=== PATIENT | male | born 1950 | race Caucasian/White ===

== ENCOUNTER 2017-01-11 16:23 | Inpatient (IN) | payer MEDICAID ==
[~2017-01-11] VITALS: Ht 170.2 cm; Wt 88.0 kg
--- NOTE | 2017-01-11 17:30 | ERA ---
ER Documentation Chief Complaint Date/Time DATE: 01/11/17 TIME: 17:28 Chief Complaint LEFT ARM PAIN RADIATES TO NECK AND CHEST WALL X1WEEK HPI This is a very pleasant 66-year-old male, Bangladeshi-speaking with a history of diabetes and hypertension that presents to the emergency department complaining of 2 weeks of intermittent chest pain. The patient indicates that the pain initially began in his left arm was a pressure-like sensation. The pain began to spread to his neck and chest wall. He states the pain is localized to the left chest with no radiation to the right side. He also indicates that he has been experiencing back pain on the left-hand side. He denies any fever shaking or chills. He has no shortness of breath at rest or exertion. He denies any recent remote trauma. He states he has never had any similar symptoms in the past. He denies any recent exertion or heavy lifting. He is right-handed dominant. He did indicate that just prior to arrival he attempted to lift a heavy object and this significantly exacerbated the pain to 10 out of 10 in intensity. He denies any weakness of the upper or lower extremities. He denies any lower back pain or abdominal pain. He has not experienced any hemoptysis hematemesis or melanotic stools ROS All systems reviewed and are negative except as per history of present illness. Allergies Allergies: Coded Allergies: No Known Allergy (Unverified , 01/11/17) PMhx/Soc History of Surgery: No Anesthesia Reaction: No Hx Neurological Disorder: No Hx Respiratory Disorders: No Hx Cardiac Disorders: Yes (HTN) Hx Psychiatric Problems: No Hx Miscellaneous Medical Probl: Yes (diabetes) Hx Alcohol Use: Yes Hx Substance Use: No Hx Tobacco Use: No Smoking Status: Never smoker Physical Exam Vitals Vital Signs Date Time Temp Pulse Resp B/P Pulse Ox O2 Delivery O2 Flow Rate FiO2 01/11/17 16:28 97.9 80 18 141/82 98 Physical Exam Constitutional:Well-developed. Well-nourished. HEENT:Normocephalic. Atraumatic.Pupils were equal round reactive to light. Moist mucous membranes.No tonsillar exudates. Neck: No nuchal rigidity. No lymphadenopathy. No posterior cervical spine tenderness or step-offs. Respiratory: Not using accessory muscles of respiration.Lungs were clear to auscultation bilaterally. No rhonchi. No rales. No wheezing. Cardiovascular: Regular rate regular rhythm.No murmurs. No rubs were appreciated.S1, S2 normal. Distal pulses are palpable 2+ bilaterally. GI: Abdomen was soft. Nontender. Non Distended. No pulsatile abdominal masses or bruits. No rebound. No guarding. Bowel sounds were present and normal. Muscle skeletal: Full range of motion of both the upper and lower extremities bilaterally.Normal muscle tone.No assymetrical calf tenderness or swelling. Reproducible tenderness over the left forearm with compartment soft. Skin: No petechia, no purpura. No lesions on the palms or the soles of the feet. No maculopapular rash. NEURO: Patient was alert, awake, orientated x3.No facial droop. Gait observed and normal with no ataxia.Speech had regular rate and rhythm. No focal neurological deficits. Result Diagram: 01/11/17173901/11/17 1740 Results 24 hrs Laboratory Tests Test 01/11/17 17:40 White Blood Count 8.010^3/ul Red Blood Count 4.8210^6/ul Hemoglobin 14.6g/dl Hematocrit 43.9% Mean Corpuscular Volume 91.1fl Mean Corpuscular Hemoglobin 30.3pg Mean Corpuscular Hemoglobin Concent 33.3g/dl Red Cell Distribution Width 11.9% Platelet Count 89774^3/UL Mean Platelet Volume 12.3fl Neutrophils % 54.0% Lymphocytes % 34.3% Monocytes % 6.8% Eosinophils % 4.0% Basophils % 0.5% Nucleated Red Blood Cells % 0.0/100WBC Neutrophils # 4.310^3/ul Lymphocytes # 2.710^3/ul Monocytes # 0.510^3/ul Eosinophils # 0.310^3/ul Basophils # 0.010^3/ul Nucleated Red Blood Cells # 0.010^3/ul Prothrombin Time 12.0Sec Prothrombin Time Ratio 0.9 INR International Normalized Ratio 0.89 Activated Partial Thromboplast Time 26.6Sec Sodium Level 145mmol/L Potassium Level 4.4mmol/L Chloride Level 100mmol/L Carbon Dioxide Level 30mmol/L Anion Gap 19 Blood Urea Nitrogen 28mg/dl Creatinine 1.17mg/dl Glucose Level 131mg/dl Calcium Level 9.7mg/dl Total Bilirubin 0.1mg/dl Direct Bilirubin 0.00mg/dl Indirect Bilirubin 0.1mg/dl Aspartate Amino Transf (AST/SGOT) 36IU/L Alanine Aminotransferase (ALT/SGPT) 45IU/L Alkaline Phosphatase 70IU/L Creatine Kinase 129IU/L Creatine Kinase Index 4.8 Creatinine Kinase MB (Mass) 6.18ng/ml Troponin I 1.160ng/ml B-Type Natriuretic Peptide 1640PG/ML Total Protein 7.7g/dl Albumin 4.9g/dl Globulin 2.80g/dl Albumin/Globulin Ratio 1.75 Current Medications Medications (Trade) Dose Ordered Sig/Miguel Route PRN Reason Start Time Stop Time Status Last Admin Dose Admin Aspirin (Aspirin) 325 mg ONCE STAT PO 01/11/17 18:34 01/11/17 18:35 DC 01/11/17 18:57 Nitroglycerin (Nitroglycerin (Sl Tab) 0.4 Mg) 1 tab Q5M UP TO 3 DOSES PRN SL CHEST PAIN 01/11/17 19:00 IV Flush 10 ml 10 ml STK-MED ONCE .ROUTE 01/11/17 19:06 01/11/17 19:07 DC Sodium Chloride (NS) 0 ml @ ud STK-MED ONCE .ROUTE 01/11/17 19:06 01/11/17 19:07 DC Iodixanol (Visipaque Locm) 100 ml STK-MED ONCE .ROUTE 01/11/17 19:06 01/11/17 19:07 DC Ondansetron HCl (Zofran Inj) 4 mg ER BRIDGE PRN IV NAUSEA AND/OR VOMITING 01/11/17 20:00 01/12/17 19:59 Acetaminophen (Tylenol Tab) 650 mg ER BRIDGE PRN PO MILD PAIN/FEVER 01/11/17 20:00 01/12/17 19:59 IV Flush 10 ml 10 ml STK-MED ONCE .ROUTE 01/11/17 21:06 01/11/17 21:07 DC Sodium Chloride (NS) 100 ml @ ud STK-MED ONCE .ROUTE 01/11/17 21:06 01/11/17 21:07 DC Iodixanol (Visipaque Locm) 100 ml STK-MED ONCE .ROUTE 01/11/17 21:06 01/11/17 21:07 DC IV Flush 10 ml 10 ml STK-MED ONCE .ROUTE 01/11/17 21:28 01/11/17 21:29 DC Sodium Chloride (NS) 100 ml @ ud STK-MED ONCE .ROUTE 01/11/17 21:28 01/11/17 21:29 DC Iodixanol (Visipaque Locm) 100 ml STK-MED ONCE .ROUTE 01/11/17 21:28 01/11/17 21:29 DC Procedures/MDM The patient presented to the emergency department with chest pain. My clinical evaluation and workup was to distinguish minor causes of chest pain from acute life threatening conditions such as myocardial infarction, pulmonary embolism, aortic dissection, esophageal rupture, cardiac tamponade. The patient was placed on a system consultant and continuous pulse oximetry. IV access established by nursing staff. 12 Lead EKG tracing ordered and reviewed by myself showed: Normal sinus rhythm of 75 bpm and no arrhythmia. WV interval normal. QRS duration normal. No ST segment elevation. Minimal criteria for LVH No ST segment depression. No changes consistent with acute ischemia. The patient's troponin was elevated. He was treated for non-STEMI. The patient had received aspirin and nitroglycerin with improvement of his chest discomfort. He had no other electrolyte abnormalities. I repeated the EKG at 1938. 12 Lead EKG tracing ordered and reviewed by myself showed: Normal sinus rhythm of 73 bpm and no arrhythmia. WV interval normal. QRS duration normal. No ST segment elevation No ST segment depression. No changes consistent with acute ischemia. Given that the patient's chest pain radiates to the back I obtained a CT scan with IV contrast. This was read by the radiologist as well as myself and indicated the following: The patient had no evidence of pulmonary embolism or aortic dissection. The patient had an aneurysmal dilatation of the ascending aorta measuring 3.9. The descending aorta was of normal caliber. The patient will be admitted in serious condition with an anticipated stay of greater than 2 midnights under the care of the hospitalist Dr. Emerson. I will place a consult to the vascular surgeon Dr. Stoll for further evaluation into the patient's chest pain radiating to the back however at this time the patient was stable and did not require surgical intervention for the ascending aortic aneurysm. Departure Diagnosis: Primary Impression: NSTEMI (non-ST elevated myocardial infarction) Additional Impression: Mild ascending aorta dilatation Condition: Serious DARRELL DURBIN Jan 11, 2017 17:30
[2017-01-11 17:55] LABS: ADD SCAN DIFF NO
[2017-01-11 17:59] LABS: BASOPHILS % 0.5 % (0.0-2.0); EOSINOPHILS # 0.3 10^3/ul (0.0-0.5); HEMATOCRIT 43.9 % (42.0-52.0); HEMOGLOBIN 14.6 g/dl (14.0-18.0); LYMPHOCYTES # 2.7 10^3/ul (0.8-2.9); LYMPHOCYTES % 34.3 % (15.0-51.0); MEAN CORPUSCULAR HEMOGLOBIN 30.3 pg (29.0-33.0); MEAN CORPUSCULAR HGB CONC 33.3 g/dl (32.0-37.0); MEAN CORPUSCULAR VOLUME 91.1 fl (82.0-101.0); MEAN PLATELET VOLUME 12.3 fl (7.4-10.4); MONOCYTE # 0.5 10^3/ul (0.3-0.9); MONOCYTES % 6.8 % (0.0-11.0); NEUTROPHIL # 4.3 10^3/ul (1.6-7.5); PLATELET COUNT 186 10^3/UL (140-415); RED BLOOD COUNT 4.82 10^6/ul (4.70-6.10); RED CELL DISTRIBUTION WIDTH 11.9 % (11.5-14.5)
[2017-01-11 18:15] LABS: INR 0.89; PARTIAL THROMBOPLASTIN TIME 26.6 Sec (25.0-35.0); PT RATIO 0.9
[2017-01-11 18:18] LABS: ALBUMIN 4.9 g/dl (3.3-4.9); ALBUMIN/GLOBULIN RATIO 1.75; BILIRUBIN,INDIRECT 0.1 mg/dl (0-1.1); BILIRUBIN,TOTAL 0.1 mg/dl (0.2-1.3); CALCIUM 9.7 mg/dl (8.4-10.2); CREATININE 1.17 mg/dl (0.61-1.24); POTASSIUM 4.4 mmol/L (3.5-5.1); TOTAL PROTEIN 7.7 g/dl (6.1-8.1)
--- NOTE | 2017-01-11 18:25 | RADRPT ---
PROCEDURE: XR Chest. CLINICAL INDICATION: Chest pain. TECHNIQUE: Single frontal view. COMPARISON: None. FINDINGS: The lungs are clear. The heart size is normal. There is no pleural effusion. There is no pneumothorax. IMPRESSION: 1. Normal chest radiograph. RPTAT: QQ .Anival Akhtar MD, Date Time Electronically viewed and signed by .Anival Akhtar MD, on 01/11/2017 18:24 .R/
[2017-01-11 18:31] LABS: CK-MB 6.18 ng/ml (0.0-2.4)
[2017-01-11 18:33] LABS: TROPONIN-I 1.16 ng/ml (0.00-0.12)
[2017-01-11] MEDS ORDERED: ASPIRIN 325 MG TAB PO STA (18:34)
[2017-01-11] MEDS ORDERED: NITROGLYCERIN (SL) 0.4 MG TAB SL PRN (19:00)
[2017-01-11] MEDS ORDERED: IODIXANOL LOCM 100 ML BTL ONE ×3 (19:06→21:28)
[2017-01-11] MEDS ORDERED: SOD CHLORIDE 0.9% 0 ML ONE (19:06)
[2017-01-11] MEDS ORDERED: ACETAMINOPHEN 325 MG TAB PO PRN (20:00)
[2017-01-11] MEDS ORDERED: ONDANSETRON 4 MG INJ IV PRN (20:00)
[2017-01-11] MEDS ORDERED: SOD CHLORIDE 0.9% 100 ML ONE ×2 (21:06→21:28)
--- NOTE | 2017-01-11 21:41 | RADRPT ---
PROCEDURE: CT Chest with IV contrast. CLINICAL INDICATION: Chest pain. TECHNIQUE: CT scan of the chest was performed on a multidetector scanner. The patient was scanned following the uncomplicated intravenous administration of 100 cc of Visapaque 320 contrast. 3D, co noelle and sagittal reformatted images were obtained from the axial source images. Images were review ed on a high-resolution PACS workstation. The total exam CTDlvol = 355 mGy and DLP = 809 mGy-cm. One of the following 3 dose reduction techniques were used: Automated exposure control; adjustment of t he mA and/or kV according to patient size; or use of iterative reconstruction technique. COMPARISON: 01/11/2017 FINDINGS: Per document management technician report, there was extravasation of the patient's intravenous contrast injection. Study is nondiagnostic as there is no significant intravascular contrast bolus within the pulmonary arteries or aorta. There is aneurysmal dilatation of the ascending aorta measuring 3.9 cm AP diameter. Descending aort a is normal in caliber.. There is no mediastinal or hilar lymphadenopathy or mass. Heart is normal size. There is trace fluid within the pericardial recesses. There is mild dependent atelectasis. No focal infiltrate. There is no pleural effusion. There is no pneumothorax. There are no fractures. There are degenerative changes of the thoracic spine. Imaging obtained through the upper abdomen reveals no acute abnormality. IMPRESSION: 1. Nondiagnostic examination for pulmonary emboli or aortic dissection. No significant intravascul ar contrast due to contrast extravasation at the injection site per document management technician. 2. Aneurysmal dilatation of the ascending aorta. 3. Trace fluid in the pericardial recess. 4. Mild dependent atelectasis. No focal infiltrate. 5. Degenerative changes of the thoracic spine. RPTAT: HMVK .Justice Morales MD, MD Date Time Electronically viewed and signed by .Justice Morales MD, MD on 01/11/2017 21:41 .K/
[2017-01-12] VITALS (12 sets, daily range): BP systolic 107–133; BP diastolic 55–73; PULSE 58–71; RESP 18–20; Ht 170.2 cm; Wt 88.0 kg
[2017-01-12] MEDS ORDERED: ONDANSETRON 4 MG INJ IV PRN (00:30)
[2017-01-12] MEDS ORDERED: ACETAMINOPHEN 325 MG TAB PO PRN (00:30)
[2017-01-12] MEDS ORDERED: NACL 0.9% 3 ML SYG IV SCH (00:30)
[2017-01-12] MEDS ORDERED: morphine 2 MG INJ IV PRN (00:30)
--- NOTE | 2017-01-12 04:03 | HP ---
Date/Time of Note Date/Time of Note DATE: 01/12/17 TIME: 03:44 Assessment/Plan VTE Prophylaxis VTE Prophylaxis Intervention: SCD's Lines/Catheters IV [facility]from [facility] Saline Lock Urinary Cath still in place: No Assessment/Plan Chief Complaint/Hosp Course This is a 66-year-old male being admitted to the telemetry floor for: #1 chest pain: NSTEMI versus aortic dissection versus PE. Patient's blood pressure right now is within acceptable values. He is currently chest pain- free. However CT scan was nondiagnostic to rule out PE or aortic dissection secondary to extravasation of the contrast. Repeat CT scan was not able to be done as he had a significant load of contrast dye would be risk for kidney injury as his creatinine was 1.17. At the current time patient is chest pain- free. We will continue to trend troponin. Initial one was 1.16. Will provide nitroglycerin and morphine for pain control. I am hesitant to initiate a heparin drip right now if this truly is an NSTEMI secondary to patient's initial presentation of pain radiating to the back and with the CT chest showing aortic root dilatation and there being a risk of possibly causing worsening of symptoms if this is an underlying dissection by giving heparin drip. Will continue to monitor the patient and consult with cardiology and cardiothoracic surgery. As patient received a significant load of contrast as the try twice a do a CT of the chest we may need to do a PEREZ to assess for dissection. At the current time patient is not complaining of any tearing or ripping back pain. Chest x-ray does appear normal with no widening mediastinum , however still we will consult with cardiology and cardiothoracic surgery before proceeding with anticoagulation. #2 hypertension: We will provide low-dose beta-blockade at this time patient currently in does not recall his home medications. #3 diabetes mellitus: We will check a hemoglobin A1c. Patient does not recall all medications he denies use of any insulin right now. Will put patient on insulin sliding scale. #4 Renal insufficiency: Creatinine of 1.17. There are no previous lab results for this patient. He did receive a contrast load today with for his CT scan. Will monitor renal function. Will consult nephrology. DVT and GI prophylaxis: SCDs, Protonix Problems: HPI/ROS Admit Date/Time Admit Date/Time Jan 11, 2017 at 19:38 Hx of Present Illness Chief complaint: Intermittent chest pain 2 weeks This is a very pleasant 66-year-old male, Estonian-speaking with a history of diabetes and hypertension that presents to the emergency department complaining of 2 weeks of intermittent chest pain. The patient indicates that the pain initially began in his left arm was a pressure-like sensation. The pain began to spread to his neck and chest wall. He states the pain is localized to the left chest with no radiation to the right side. He also indicates that he has been experiencing back pain on the left-hand side. He denies any fever shaking or chills. He has no shortness of breath at rest or exertion. He denies any recent remote trauma. He states he has never had any similar symptoms in the past. He denies any recent exertion or heavy lifting. He is right-handed dominant. He did indicate that just prior to arrival he attempted to lift a heavy object and this significantly exacerbated the pain to 10 out of 10 in intensity. He denies any weakness of the upper or lower extremities. He denies any lower back pain or abdominal pain. Denies any recent bleeding of any sort. At the present time on my examination, patient is chest pain-free. Allergies: NKDA Medications: See SERENA SCHWARZ Const: As per HPI Eyes : No pain discharge or redness or change in visual acuity ENT: No pain, sore throat, congestion, congestion, dysphagia or discharge Respiratory: No shortness of breath, cough, sputum, wheezing, or pleuritic pain Cardiovascular: As per HPI GI : no change in appetite, abdominal pain, nausea, vomiting, diarrhea, constipation, or change in the color his stool Genitourinary: No dysuria, hematuria, flank pain , discharge or CVA tenderness Musculoskeletal: As per HPI Skin: No rash, bruising or hives Neuro: No headache, dizziness, syncope, seizure, focal weakness Endocrine: No polyuria, polydipsia, temperature intolerance Psych: No hallucination, depression, anxiety or suicidal ideation PMH/Family/Social Past Medical History Hypertension, diabetes Past Surgical History Past Surgical Hx: no surgical history Family History Significant Family History: no pertinent family hx Social History Alcohol Use: heavy (Patient states that 3 weeks ago he had his last drink, however he does state that he drinks approximately a 6 pack a day.) Smoking Status: Never smoker Drug Use: none Exam/Review of Systems Vital Signs Vitals Vital Signs Date Time Temp Pulse Resp B/P Pulse Ox O2 Delivery O2 Flow Rate FiO2 01/12/17 02:50 98.2 65 20 133/72 97 Room Air Exam Exam General: Patient is lying comfortably in bed in no acute distress and is very pleasant. HEENT: Atraumatic, normocephalic. The pupils are equal, round and reactive. Extraocular motor are intact Neck: Supple with full range of motion. No rigidity or meningismus Chest: Nontender Lungs: Clear to auscultation bilaterally no crackles rales or wheezing Heart: Normal S1-S2, Regular rhythm and rate. No overt murmur appreciated on auscultation. Abdomen: Soft , nontender, nondistended , bowel sounds are present. No guarding no rebound tenderness , No masses or organomegaly. No costovertebral temporal angle mass Extremities: Normal to inspection, no edema no cyanosis Neurologic: Normal mental status, speech normal, cranial nerves II through XII are intact, motor and sensory are intact, no focal weakness Additional Comments PROCEDURE: CT Chest with IV contrast. CLINICAL INDICATION: Chest pain. TECHNIQUE: CT scan of the chest was performed on a multidetector scanner. The patient was scanned following the uncomplicated intravenous administration of 100 cc of Visapaque 320 contrast. 3D, coronal and sagittal reformatted images were obtained from the axial source images. Images were reviewed on a high-resolution PACS workstation. The total exam CTDlvol = 355 mGy and DLP = 809 mGy-cm. One of the following 3 dose reduction techniques were used: Automated exposure control; adjustment of the mA and/or kV according to patient size; or use of iterative reconstruction technique. COMPARISON: 01/11/2017 FINDINGS: Per ag equipment field service technician report, there was extravasation of the patient's intravenous contrast injection. Study is nondiagnostic as there is no significant intravascular contrast bolus within the pulmonary arteries or aorta. There is aneurysmal dilatation of the ascending aorta measuring 3.9 cm AP diameter. Descending aorta is normal in caliber.. There is no mediastinal or hilar lymphadenopathy or mass. Heart is normal size. There is trace fluid within the pericardial recesses. There is mild dependent atelectasis. No focal infiltrate. There is no pleural effusion. There is no pneumothorax. There are no fractures. There are degenerative changes of the thoracic spine. Imaging obtained through the upper abdomen reveals no acute abnormality. IMPRESSION: 1. Nondiagnostic examination for pulmonary emboli or aortic dissection. No significant intravascular contrast due to contrast extravasation at the injection site per ag equipment field service technician. 2. Aneurysmal dilatation of the ascending aorta. 3. Trace fluid in the pericardial recess. 4. Mild dependent atelectasis. No focal infiltrate. 5. Degenerative changes of the thoracic spine. RPTAT: HMVK .Justice Morales MD, MD Date Time Electronically viewed and signed by .Justice Morales MD, on 01/11/2017 21:41 Labs Result Diagram: 01/11/17173901/11/17 174 Medications Medications Current Medications Ondansetron HCl (Zofran Inj) 4 mg Q6H PRN IV NAUSEA AND/OR VOMITING; Start at 00:30 Aspirin (Aspirin) 81 mg DAILY PO ; Start 01/12/17 at 09:00 Acetaminophen (Tylenol Tab) 650 mg Q6H PRN PO PAIN LEVEL 1-3 OR FEVER; Start at 00:30 Morphine Sulfate (morphine) 2 mg Q4H PRN IV PAIN LEVEL 7-10; Start 01/12/17 at 00:30 Pantoprazole (Protonix Iv) 40 mg DAILY@06 IV ; Start 01/12/17 at 06:00 MASSIEL ALEXANDER Jan 12, 2017 04:01
[2017-01-12] MEDS ORDERED: morphine 4 MG/ML VIAL IV STA (05:21)
[2017-01-12] MEDS ORDERED: NITROGLYCERIN (SL) 0.4 MG TAB ONE (05:24)
[2017-01-12 05:37] LABS: ADD SCAN DIFF NO
[2017-01-12 05:48] LABS: BASOPHILS % 0.6 % (0.0-2.0); EOSINOPHILS # 0.2 10^3/ul (0.0-0.5); EOSINOPHILS % 3.4 % (0.0-7.0); HEMATOCRIT 40.9 % (42.0-52.0); HEMOGLOBIN 13.8 g/dl (14.0-18.0); LYMPHOCYTES % 30.5 % (15.0-51.0); MEAN CORPUSCULAR HEMOGLOBIN 31.1 pg (29.0-33.0); MEAN CORPUSCULAR HGB CONC 33.7 g/dl (32.0-37.0); MEAN CORPUSCULAR VOLUME 92.1 fl (82.0-101.0); MEAN PLATELET VOLUME 12.4 fl (7.4-10.4); MONOCYTE # 0.4 10^3/ul (0.3-0.9); MONOCYTES % 6.1 % (0.0-11.0); NEUTROPHIL # 3.9 10^3/ul (1.6-7.5); NEUTROPHILS % 58.9 % (39.0-77.0); PLATELET COUNT 170 10^3/UL (140-415); RED BLOOD COUNT 4.44 10^6/ul (4.70-6.10); RED CELL DISTRIBUTION WIDTH 11.8 % (11.5-14.5); WHITE BLOOD COUNT 6.6 10^3/ul (4.8-10.8)
[2017-01-12 06:01] LABS: CHOL/HDL RATIO 4.1 RATIO
[2017-01-12 06:21] LABS: CK-MB 10.7 ng/ml (0.0-2.4); TROPONIN-I 1.99 ng/ml (0.00-0.12)
[2017-01-12 06:23] LABS: ALBUMIN 4.3 g/dl (3.3-4.9); ALBUMIN/GLOBULIN RATIO 1.79; BILIRUBIN,INDIRECT 0.3 mg/dl (0-1.1); BILIRUBIN,TOTAL 0.3 mg/dl (0.2-1.3); CALCIUM 9.2 mg/dl (8.4-10.2); CREATININE 1.05 mg/dl (0.61-1.24); POTASSIUM 4.1 mmol/L (3.5-5.1); TOTAL PROTEIN 6.7 g/dl (6.1-8.1)
[2017-01-12] MEDS ORDERED: GLUCAGON 1 MG INJ IM PRN (07:00)
[2017-01-12] MEDS ORDERED: DEXTROSE 50% 50 ML SYRINGE IV PRN ×2 (07:00)
[2017-01-12] MEDS ORDERED: GLUCOSE GEL 15 GRAM TUBE PO PRN ×2 (07:00)
[2017-01-12] MEDS ORDERED: GLUCOSE GEL 15 GRAM TUBE BUCCAL PRN (07:00)
[2017-01-12] MEDS: PANTOPRAZOLE 40 MG INJ IV SCH (07:24)
[2017-01-12] MEDS ORDERED: SOD CHLORIDE 0.9% 500 ML IV ONE (07:30)
[2017-01-12] MEDS: INSULIN ASPART [NOVOLOG] 3 ML PEN SC SCH ×4 (08:23→20:51)
[2017-01-12] MEDS: ASPIRIN 81 MG TAB PO SCH (08:23)
[2017-01-12 08:52] LABS: ALBUMIN 4.1 g/dl (3.3-4.9); ALBUMIN/GLOBULIN RATIO 1.86; BILIRUBIN,INDIRECT 0.3 mg/dl (0-1.1); BILIRUBIN,TOTAL 0.3 mg/dl (0.2-1.3); CALCIUM 9.7 mg/dl (8.4-10.2); CREATININE 0.91 mg/dl (0.61-1.24); POTASSIUM 4.2 mmol/L (3.5-5.1); TOTAL PROTEIN 6.3 g/dl (6.1-8.1)
[2017-01-12 09:07] LABS: CK-MB 8.92 ng/ml (0.0-2.4); TROPONIN-I 2.07 ng/ml (0.00-0.12)
--- NOTE | 2017-01-12 09:17 | RADRPT ---
PROCEDURE: CTA Chest. CLINICAL INDICATION: Chest pain TECHNIQUE: Cough the injury and was attempted however of the line that had been placed was not sero ma for injection and the study was unable to be performed. One or more of the following dose reduction techniques were used: - Automated exposure control. - Adjustment of the mA and/or kV according to patient size. Use of iterative reconstruction technique. DLP 105.6 mGycm CTDIvol December 08 0.3 mGy COMPARISON: No prior studies are available for comparison. FINDINGS: Nondiagnostic study IMPRESSION: Nondiagnostic study RPTAT: QQ .Mohan Cid MD, Date Time Electronically viewed and signed by .Mohan Cid MD, MD on 01/12/2017 09:17 .Toby/
--- NOTE | 2017-01-12 09:53 | CONS ---
Date/Time of Note Date/Time of Note DATE: 01/12/17 TIME: 09:44 Assessment/Plan Assessment/Plan Chief Complaint/Hosp Course NSTEMI: Trop up to 2. Now asymptomatic. Low suspicion for aortic dissection but as there was a high suspicion in the ER and the first test was nondiagnostic ( of note no contrast was given IV as was extravasated), will await results of this morning's CT to then start heparin drip Ascending aorta aneurysm: 3.[address] DM HTN -f/u CTA. If no dissection, heparin drip has been ordered and can be started -plan for cardiac cath in am -NPO after midnight -ASA -start lipitor 40mg -start metoprolol 25mg BID -bedrest -echo Problems: Consultation Date/Type/Reason Admit Date/Time Jan 11, 2017 at 19:38 Date of Consultation: Jan 12, 2017 Type of Consultation: Cardiology Reason for Consultation NSTEMI Referring Provider: MASSIEL ALEXANDER Hx of Present Illness 66 yo M with a h/o DM, HTN, who presented with chest pain. The pt had been complaining of chest pain radiating to the back and so a CTA was ordered in the ER. The contrast extravasated and so no contrast was delivered and the test was read as nondiagnostic. This am it is reordered. The pt notes that over the past 2 weeks he has been having exertional left arm/chest/jaw pressure which resolves with rest. Yesterday he had an episode lifting a small piece of wood and prior to bed had rest pain. Since coming in his chest pain resolved except for this am when he was having his blood drawn (afraid of needles). Currently asymptomatic. No SOB, no orthopnea, PND. per hPI Past Medical History per HPI Past Surgical History Past Surgical Hx: no surgical history Social History Alcohol Use: heavy (Patient states that 3 weeks ago he had his last drink, however he does state that he drinks approximately a 6 pack a day.) Smoking Status: Never smoker Drug Use: none Exam/Review of Systems Vital Signs Vitals Vital Signs Date Time Temp Pulse Resp B/P Pulse Ox O2 Delivery O2 Flow Rate FiO2 01/12/17 08:12 68 01/12/17 07:34 98.0 18 111/69 100 01/12/17 02:50 Room Air Intake and Output 01/11/17 01/11/17 01/12/17 15:00 23:00 07:00 Intake Total 500 ml Output Total 600 ml Balance -100 ml Exam Constitutional: alert, oriented Psych: nl mood/affect, no complaints Head: atraumatic, normocephalic Neck: No jvd Respiratory: clear to auscultation, No crackles/rales Cardiovascular: regular rate and rhythm, No edema, No systolic murmur Gastrointestinal: non-tender, soft Neurological: nl mental status, nl speech Results EKG: sinus, no significant ST changes, poor RW progression, low voltage Result Diagram: 01/12/17 0503 01/12/17 0731 Results 24 hrs Laboratory Tests Test 01/11/17 17:40 01/12/17 05:03 01/12/17 05:07 01/12/17 07:27 White Blood Count 8.0 6.6 Red Blood Count 4.82 4.44 L Hemoglobin 14.6 13.8 L Hematocrit 43.9 40.9 L Mean Corpuscular Volume 91.1 92.1 Mean Corpuscular Hemoglobin 30.3 31.1 Mean Corpuscular Hemoglobin Concent 33.3 33.7 Red Cell Distribution Width 11.9 11.8 Platelet Count 186 170 Mean Platelet Volume 12.3 H 12.4 H Neutrophils % 54.0 58.9 Lymphocytes % 34.3 30.5 Monocytes % 6.8 6.1 Eosinophils % 4.0 3.4 Basophils % 0.5 0.6 Nucleated Red Blood Cells % 0.0 0.0 Neutrophils # 4.3 3.9 Lymphocytes # 2.7 2.0 Monocytes # 0.5 0.4 Eosinophils # 0.3 0.2 Basophils # 0.0 0.0 Nucleated Red Blood Cells # 0.0 0.0 Prothrombin Time 12.0 L Prothrombin Time Ratio 0.9 INR International Normalized Ratio 0.89 Activated Partial Thromboplast Time 26.6 Sodium Level 145 H 143 Potassium Level 4.4 4.1 Chloride Level 100 98 Carbon Dioxide Level 30 31 Anion Gap 19 H 18 H Blood Urea Nitrogen 28 H 24 H Creatinine 1.17 1.05 Glucose Level 131 240 #H Calcium Level 9.7 9.2 Total Bilirubin 0.1 L 0.3 Direct Bilirubin 0.00 0.00 Indirect Bilirubin 0.1 0.3 Aspartate Amino Transf (AST/SGOT) 36 39 Alanine Aminotransferase (ALT/SGPT) 45 45 Alkaline Phosphatase 70 54 Creatine Kinase 129 152 162 Creatine Kinase Index 4.8 7.0 5.5 Creatinine Kinase MB (Mass) 6.18 H 10.70 H 8.92 H Troponin I 1.160 *H 1.990 *H 2.070 *H B-Type Natriuretic Peptide 1640 H Total Protein 7.7 6.7 # Albumin 4.9 4.3 Globulin 2.80 2.40 Albumin/Globulin Ratio 1.75 1.79 Thyroid Stimulating Hormone (TSH) 4.020 Hemoglobin A1c 10.9 H Triglycerides Level 124 Cholesterol Level 146 LDL Cholesterol, Calculated 86 HDL Cholesterol 35 Cholesterol/HDL Ratio 4.1 Test 01/12/17 07:31 01/12/17 07:42 Sodium Level 141 Potassium Level 4.2 Chloride Level 97 Carbon Dioxide Level 29 Anion Gap 19 H Blood Urea Nitrogen 25 H Creatinine 0.91 Glucose Level 172 Calcium Level 9.7 Total Bilirubin 0.3 Direct Bilirubin 0.00 Indirect Bilirubin 0.3 Aspartate Amino Transf (AST/SGOT) 38 Alanine Aminotransferase (ALT/SGPT) 41 Alkaline Phosphatase 57 Total Protein 6.3 Albumin 4.1 Globulin 2.20 Albumin/Globulin Ratio 1.86 Bedside Glucose 173 Medications Medications Current Medications Ondansetron HCl (Zofran Inj) 4 mg Q6H PRN IV NAUSEA AND/OR VOMITING; Start at 00:30 Aspirin (Aspirin) 81 mg DAILY PO Last administered on 01/12/17 08:23; Admin Dose 81 MG; Start 01/12/17 at 09:00 Acetaminophen (Tylenol Tab) 650 mg Q6H PRN PO PAIN LEVEL 1-3 OR FEVER; Start at 00:30 Morphine Sulfate (morphine) 2 mg Q4H PRN IV PAIN LEVEL 7-10; Start 01/12/17 at 00:30 Pantoprazole (Protonix Iv) 40 mg DAILY@06 IV Last administered on 01/12/17 07: 24; Admin Dose 40 MG; Start 01/12/17 at 06:00 Insulin Glargine (Lantus) 15 unit DAILY@20 SC ; Start 01/12/17 at 20:00 Diagnostic Test (Pha) (Accu-Chek) 1 ea 02 XX ; Start 01/13/17 at 02:00 Miscellaneous Information 1 ea NOTE XX ; Start 01/12/17 at 07:00 Glucose (Glutose) 15 gm Q15M PRN PO DECREASED GLUCOSE; Start 01/12/17 at 07:00 Glucose (Glutose) 22.5 gm Q15M PRN PO DECREASED GLUCOSE; Start 01/12/17 at 07: 00 Dextrose (D50w Syringe) 25 ml Q15M PRN IV DECREASED GLUCOSE; Start 01/12/17 at 07:00 Dextrose (D50w Syringe) 50 ml Q15M PRN IV DECREASED GLUCOSE; Start 01/12/17 at 07:00 Glucagon (Glucagen) 1 mg Q15M PRN IM DECREASED GLUCOSE; Start 01/12/17 at 07:00 Glucose (Glutose) 15 gm Q15M PRN BUCCAL DECREASED GLUCOSE; Start 01/12/17 at 07 :00 Atorvastatin Calcium (Lipitor) 40 mg HS PO ; Start 01/12/17 at 21:00 Metoprolol Tartrate (Lopressor) 25 mg BID PO ; Start 01/12/17 at 09:30 FRANKIE WOOD Jan 12, 2017 09:53
[2017-01-12] MEDS ORDERED: HEPARIN 1000 UNITS/ML 10 ML INJ IV PRN (10:00)
[2017-01-12] MEDS ORDERED: HEPARIN 1000 UNITS/ML 10 ML INJ IV ONE (10:00)
[2017-01-12] MEDS ORDERED: IOHEXOL 300MG/ML 150 ML BTL ONE (10:05)
[2017-01-12] MEDS ORDERED: SOD CHLORIDE 0.9% 100 ML ONE (10:05)
[2017-01-12 10:15] LABS: CK-MB 8.73 ng/ml (0.0-2.4)
[2017-01-12 10:33] LABS: TROPONIN-I 2.04 ng/ml (0.00-0.12)
[2017-01-12] MEDS: METOPROLOL 25 MG TAB PO SCH ×2 (10:40→20:51)
--- NOTE | 2017-01-12 10:43 | RADRPT ---
PROCEDURE: CTA Chest. CLINICAL INDICATION: Chest pain TECHNIQUE: The study was performed utilizing a multidetector CT scanner. Direct spiral 1 mm axial sections were obtained from the thoracic inlet to the upper abdomen with the use of 100 cc of Omnipa que 350 nonionic intravenous contrast material and reformatted at 3 mm. Coronal and sagittal reforma tions were obtained. 3-D reconstructions were also obtained. The images were reviewed on a PACS wor kstation. One or more of the following dose reduction techniques were used: - Automated exposure control. - Adjustment of the mA and/or kV according to patient size. Use of iterative reconstruction technique. DLP 687.3 mGycm CTDIvol 22.5 and 16.9 mGy COMPARISON: Chest CT 01/01/2017 FINDINGS: The pulmonary arteries are within normal limits with no filling defects present to suggest pulmonary embolus. Aortic and coronary artery atherosclerotic plaque and calcification are present with no e vidence of dissection. There is no cardiomegaly. There is ascending aortic ectasia up to 3.7 cm. There is no lung consolidation, pleural effusion, or pneumothorax. There is no suspicious nodule or mass. The airways are patent. There are no enlarged mediastinal or axillary lymph nodes. Upper abdominal structures are within normal limits. Degenerative changes are seen in the lumbar sp ine with no evidence of acute osseous abnormality. IMPRESSION: No CT evidence for pulmonary embolus. There is no aortic dissection. There is ascending aortic ectas ia. Atherosclerotic disease. No acute pulmonary process. RPTAT: AA .Mohan Cid MD, Date Time Electronically viewed and signed by .Mohan Cid MD, MD on 01/12/2017 10:43 .J/
[2017-01-12 11:41] LABS: ADD SCAN DIFF NO
[2017-01-12] MEDS: HEPARIN 25000 UNITS/250 ML 250 ML IV SCH ×2 (11:56→19:12)
[2017-01-12] MEDS: INSULIN GLARGINE [LANtus] 3 ML PEN SC SCH (12:01)
[2017-01-12 12:03] LABS: INR 1.06; PROTIME 13.8 Sec (12.2-14.2); PT RATIO 1.1
[2017-01-12 12:04] LABS: PARTIAL THROMBOPLASTIN TIME 27.8 Sec (25.0-35.0)
[2017-01-12 12:49] LABS: BASOPHIL # 0.1 10^3/ul (0.0-0.1); BASOPHILS % 0.8 % (0.0-2.0); EOSINOPHILS # 0.2 10^3/ul (0.0-0.5); EOSINOPHILS % 2.7 % (0.0-7.0); HEMATOCRIT 40.9 % (42.0-52.0); HEMOGLOBIN 13.6 g/dl (14.0-18.0); LYMPHOCYTES # 1.8 10^3/ul (0.8-2.9); LYMPHOCYTES % 28.7 % (15.0-51.0); MEAN CORPUSCULAR HEMOGLOBIN 30.6 pg (29.0-33.0); MEAN CORPUSCULAR HGB CONC 33.3 g/dl (32.0-37.0); MEAN CORPUSCULAR VOLUME 92.1 fl (82.0-101.0); MEAN PLATELET VOLUME 12.4 fl (7.4-10.4); MONOCYTE # 0.4 10^3/ul (0.3-0.9); MONOCYTES % 6.8 % (0.0-11.0); NEUTROPHIL # 3.8 10^3/ul (1.6-7.5); NEUTROPHILS % 60.5 % (39.0-77.0); PLATELET COUNT 172 10^3/UL (140-415); RED BLOOD COUNT 4.44 10^6/ul (4.70-6.10); RED CELL DISTRIBUTION WIDTH 11.9 % (11.5-14.5); WHITE BLOOD COUNT 6.3 10^3/ul (4.8-10.8)
--- NOTE | 2017-01-12 15:05 | CONS ---
Date/Time of Note Date/Time of Note DATE: 01/12/17 TIME: 15:02 Assessment/Plan Assessment/Plan Chief Complaint/Hosp Course Aortic aneurysm Problems: Additional Assessment/Plan This is a 66-year-old male with a history of hypertension and diabetes. Patient was admitted with chest pain was diagnosed with non-ST elevation OR part of his workup which which included a CAT scan of the chest revealed an ascending aortic aneurysm 3.9 cm the first CAT scan was inconclusive for dissection the second CAT scan has showed there is no dissection patient does not have any typical pain that is for aortic dissection and is hemodynamically stable We will monitor the aortic aneurysm. Repeat CAT scan in 6 months Consultation Date/Type/Reason Admit Date/Time Jan 11, 2017 at 19:38 Date of Consultation: Jan 12, 2017 Reason for Consultation Aortic aneurysm Hx of Present Illness This is a 66-year-old male with a history of hypertension and diabetes. Patient was admitted with chest pain was diagnosed with non-ST elevation OR part of his workup which which included a CAT scan of the chest revealed an ascending aortic aneurysm 3.9 cm the first CAT scan was inconclusive for dissection the second CAT scan has showed there is no dissection patient does not have any typical pain that is for aortic dissection and is hemodynamically stable Cardiovascular: no complaints Gastrointestinal: no complaints Genitourinary: no complaints Musculoskeletal: no complaints Skin: no complaints Psychological: nl mood/affect, no complaints Past Medical History Medical History: coronary artery disease, diabetes Past Surgical History Past Surgical Hx: no surgical history Social History Alcohol Use: none (Patient states that 3 weeks ago he had his last drink, however he does state that he drinks approximately a 6 pack a day.) Smoking Status: Never smoker Drug Use: none Exam/Review of Systems Vital Signs Vitals Vital Signs Date Time Temp Pulse Resp B/P Pulse Ox O2 Delivery O2 Flow Rate FiO2 01/12/17 12:12 59 01/12/17 11:59 98.6 18 107/66 99 01/12/17 02:50 Room Air Intake and Output 01/11/17 01/11/17 01/12/17 15:00 23:00 07:00 Intake Total 500 ml Output Total 600 ml Balance -100 ml Exam ENMT: nl external ears & nose, nl lips & teeth, nl nasal mucosa & septum Neck: non-tender, supple Respiratory: clear to auscultation, normal air movement Cardiovascular: nl pulses, regular rate and rhythm Gastrointestinal: nl liver, spleen, non-tender, soft Results Result Diagram: 01/12/17 1134 01/12/17 0731 Results 24 hrs Laboratory Tests Test 01/11/17 17:40 01/12/17 05:03 01/12/17 05:07 01/12/17 07:27 White Blood Count 8.0 6.6 Red Blood Count 4.82 4.44 L Hemoglobin 14.6 13.8 L Hematocrit 43.9 40.9 L Mean Corpuscular Volume 91.1 92.1 Mean Corpuscular Hemoglobin 30.3 31.1 Mean Corpuscular Hemoglobin Concent 33.3 33.7 Red Cell Distribution Width 11.9 11.8 Platelet Count 186 170 Mean Platelet Volume 12.3 H 12.4 H Neutrophils % 54.0 58.9 Lymphocytes % 34.3 30.5 Monocytes % 6.8 6.1 Eosinophils % 4.0 3.4 Basophils % 0.5 0.6 Nucleated Red Blood Cells % 0.0 0.0 Neutrophils # 4.3 3.9 Lymphocytes # 2.7 2.0 Monocytes # 0.5 0.4 Eosinophils # 0.3 0.2 Basophils # 0.0 0.0 Nucleated Red Blood Cells # 0.0 0.0 Prothrombin Time 12.0 L Prothrombin Time Ratio 0.9 INR International Normalized Ratio 0.89 Activated Partial Thromboplast Time 26.6 Sodium Level 145 H 143 Potassium Level 4.4 4.1 Chloride Level 100 98 Carbon Dioxide Level 30 31 Anion Gap 19 H 18 H Blood Urea Nitrogen 28 H 24 H Creatinine 1.17 1.05 Glucose Level 131 240 #H Calcium Level 9.7 9.2 Total Bilirubin 0.1 L 0.3 Direct Bilirubin 0.00 0.00 Indirect Bilirubin 0.1 0.3 Aspartate Amino Transf (AST/SGOT) 36 39 Alanine Aminotransferase (ALT/SGPT) 45 45 Alkaline Phosphatase 70 54 Creatine Kinase 129 152 162 Creatine Kinase Index 4.8 7.0 5.5 Creatinine Kinase MB (Mass) 6.18 H 10.70 H 8.92 H Troponin I 1.160 *H 1.990 *H 2.070 *H B-Type Natriuretic Peptide 1640 H Total Protein 7.7 6.7 # Albumin 4.9 4.3 Globulin 2.80 2.40 Albumin/Globulin Ratio 1.75 1.79 Thyroid Stimulating Hormone (TSH) 4.020 Hemoglobin A1c 10.9 H Triglycerides Level 124 Cholesterol Level 146 LDL Cholesterol, Calculated 86 HDL Cholesterol 35 Cholesterol/HDL Ratio 4.1 Test 01/12/17 07:31 01/12/17 07:42 01/12/17 09:22 01/12/17 11:14 Sodium Level 141 Potassium Level 4.2 Chloride Level 97 Carbon Dioxide Level 29 Anion Gap 19 H Blood Urea Nitrogen 25 H Creatinine 0.91 Glucose Level 172 Calcium Level 9.7 Total Bilirubin 0.3 Direct Bilirubin 0.00 Indirect Bilirubin 0.3 Aspartate Amino Transf (AST/SGOT) 38 Alanine Aminotransferase (ALT/SGPT) 41 Alkaline Phosphatase 57 Total Protein 6.3 Albumin 4.1 Globulin 2.20 Albumin/Globulin Ratio 1.86 Bedside Glucose 173 Creatine Kinase 151 Creatine Kinase Index 5.8 Creatinine Kinase MB (Mass) 8.73 H Troponin I 2.040 *H Prothrombin Time 13.8 Prothrombin Time Ratio 1.1 INR International Normalized Ratio 1.06 Activated Partial Thromboplast Time 27.8 Test 01/12/17 11:26 01/12/17 11:34 Bedside Glucose 182 White Blood Count 6.3 Red Blood Count 4.44 L Hemoglobin 13.6 L Hematocrit 40.9 L Mean Corpuscular Volume 92.1 Mean Corpuscular Hemoglobin 30.6 Mean Corpuscular Hemoglobin Concent 33.3 Red Cell Distribution Width 11.9 Platelet Count 172 Mean Platelet Volume 12.4 H Neutrophils % 60.5 Lymphocytes % 28.7 Monocytes % 6.8 Eosinophils % 2.7 Basophils % 0.8 Nucleated Red Blood Cells % 0.0 Neutrophils # 3.8 Lymphocytes # 1.8 Monocytes # 0.4 Eosinophils # 0.2 Basophils # 0.1 Nucleated Red Blood Cells # 0.0 Medications Medications Current Medications Ondansetron HCl (Zofran Inj) 4 mg Q6H PRN IV NAUSEA AND/OR VOMITING; Start at 00:30 Aspirin (Aspirin) 81 mg DAILY PO Last administered on 01/12/17t 08:23; Admin Dose 81 MG; Start 01/12/17 at 09:00 Acetaminophen (Tylenol Tab) 650 mg Q6H PRN PO PAIN LEVEL 1-3 OR FEVER; Start at 00:30 Morphine Sulfate (morphine) 2 mg Q4H PRN IV PAIN LEVEL 7-10; Start 01/12/17 at 00:30 Pantoprazole (Protonix Iv) 40 mg DAILY@06 IV Last administered on 01/12/17 07: 24; Admin Dose 40 MG; Start 01/12/17 at 06:00 Diagnostic Test (Pha) (Accu-Chek) 1 ea 02 XX ; Start 01/13/17 at 02:00 Miscellaneous Information 1 ea NOTE XX ; Start 01/12/17 at 07:00 Glucose (Glutose) 15 gm Q15M PRN PO DECREASED GLUCOSE; Start 01/12/17 at 07:00 Glucose (Glutose) 22.5 gm Q15M PRN PO DECREASED GLUCOSE; Start 01/12/17 at 07: 00 Dextrose (D50w Syringe) 25 ml Q15M PRN IV DECREASED GLUCOSE; Start 01/12/17 at 07:00 Dextrose (D50w Syringe) 50 ml Q15M PRN IV DECREASED GLUCOSE; Start 01/12/17 at 07:00 Glucagon (Glucagen) 1 mg Q15M PRN IM DECREASED GLUCOSE; Start 01/12/17 at 07:00 Glucose (Glutose) 15 gm Q15M PRN BUCCAL DECREASED GLUCOSE; Start 01/12/17 at 07 :00 Atorvastatin Calcium (Lipitor) 40 mg HS PO ; Start 01/12/17 at 21:00 Metoprolol Tartrate (Lopressor) 25 mg BID PO Last administered on 01/12/17 10: 40; Admin Dose 25 MG; Start 01/12/17 at 09:30 Insulin Glargine (Lantus) 13 unit DAILY@08 SC Last administered on 01/12/17 12 :01; Admin Dose 13 UNIT; Start 01/12/17 at 11:00 BELL HOFFMAN MD Jan 12, 2017 15:05
[2017-01-12] MEDS ORDERED: INSULIN GLARGINE [LANtus] 3 ML PEN SC SCH (20:00)
[2017-01-12] MEDS: ATORVASTATIN 40 MG TAB PO SCH (20:52)
[2017-01-13] VITALS (35 sets, daily range): BP systolic 98–150; BP diastolic 63–84; PULSE 56–79; RESP 12–25
[2017-01-13] MEDS: ACCU-CHEK XX SCH (02:00)
[2017-01-13] MEDS ORDERED: ACCU-CHEK XX SCH (02:00)
[2017-01-13] MEDS: PANTOPRAZOLE 40 MG INJ IV SCH (06:29)
[2017-01-13] MEDS: INSULIN GLARGINE [LANtus] 3 ML PEN SC SCH (08:00)
[2017-01-13] MEDS: INSULIN ASPART [NOVOLOG] 3 ML PEN SC SCH ×4 (08:00→21:30)
[2017-01-13] MEDS: METOPROLOL 25 MG TAB PO SCH (09:00)
[2017-01-13] MEDS: ASPIRIN 81 MG TAB PO SCH (09:00)
[2017-01-13 09:22] LABS: ADD SCAN DIFF NO
[2017-01-13 09:24] LABS: BASOPHILS % 0.6 % (0.0-2.0); EOSINOPHILS # 0.2 10^3/ul (0.0-0.5); EOSINOPHILS % 3.1 % (0.0-7.0); HEMOGLOBIN 14.2 g/dl (14.0-18.0); LYMPHOCYTES # 2.2 10^3/ul (0.8-2.9); LYMPHOCYTES % 33.1 % (15.0-51.0); MEAN CORPUSCULAR HEMOGLOBIN 30.9 pg (29.0-33.0); MEAN CORPUSCULAR HGB CONC 33.8 g/dl (32.0-37.0); MEAN CORPUSCULAR VOLUME 91.3 fl (82.0-101.0); MEAN PLATELET VOLUME 12.2 fl (7.4-10.4); MONOCYTE # 0.4 10^3/ul (0.3-0.9); MONOCYTES % 6.4 % (0.0-11.0); NEUTROPHIL # 3.7 10^3/ul (1.6-7.5); NEUTROPHILS % 56.5 % (39.0-77.0); PLATELET COUNT 176 10^3/UL (140-415); RED CELL DISTRIBUTION WIDTH 11.9 % (11.5-14.5); WHITE BLOOD COUNT 6.5 10^3/ul (4.8-10.8)
[2017-01-13 09:47] LABS: CALCIUM 8.9 mg/dl (8.4-10.2); CREATININE 0.81 mg/dl (0.61-1.24); MAGNESIUM 1.7 mg/dl (1.7-2.5)
[2017-01-13] MEDS: HEPARIN 25000 UNITS/250 ML 250 ML IV SCH (10:09)
[2017-01-13] MEDS ORDERED: VERAPAMIL 5 MG INJ ONE (10:17)
[2017-01-13] MEDS ORDERED: NITROGLYCERIN (IC) 100 MCG/ML INJ ONE (10:17)
[2017-01-13] MEDS ORDERED: LIDOCAINE 1% (MDV) 20 ML INJ ONE (10:17)
[2017-01-13] MEDS ORDERED: HEPARIN 1000 UNITS/ML 10 ML INJ ONE (10:17)
[2017-01-13] MEDS ORDERED: IODIXANOL LOCM 100 ML BTL ONE ×2 (10:17→11:19)
[2017-01-13] MEDS ORDERED: FENTAnyl 50 MCG/ML VIAL ONE (10:18)
[2017-01-13] MEDS ORDERED: MIDAZOLAM 1 MG/ML 2 ML INJ ONE (10:18)
--- NOTE | 2017-01-13 10:27 | CONS ---
Date/Time of Note Date/Time of Note DATE: 01/13/17 TIME: 10:26 Assessment/Plan Assessment/Plan Chief Complaint/Hosp Course NSTEMI: Trop up to 2. CTA negative for dissection. Plan for cath DM HTN -cath this am -ASA -lipitor 40mg -metoprolol 25mg BID Problems: Consultation Date/Type/Reason Admit Date/Time Jan 11, 2017 at 19:38 Initial Consult Date 01/12/17 Type of Consultation: Cardiology Referring Provider: MASSIEL ALEXANDER 24 HR Interval Summary Free Text/Dictation Chest pain this am walking to the restroom. Exam/Review of Systems Vital Signs Vitals Vital Signs Date Time Temp Pulse Resp B/P Pulse Ox O2 Delivery O2 Flow Rate FiO2 01/13/17 08:00 66 01/13/17 07:38 98.0 18 137/84 98 01/12/17 08:00 Nasal Cannula 2.0 Intake and Output 01/12/17 01/12/17 01/13/17 15:00 23:00 07:00 Intake Total 500 ml 700 ml Output Total 950 ml Balance 500 ml -250 ml Exam Constitutional: alert, oriented Psych: nl mood/affect, no complaints Head: atraumatic, normocephalic Neck: No jvd Respiratory: clear to auscultation, No crackles/rales Cardiovascular: regular rate and rhythm, No edema Gastrointestinal: non-tender, soft Neurological: nl mental status, nl speech Results Result Diagram: 01/13/17 0842 01/13/17 0842 Results 24 hrs Laboratory Tests Test 01/12/17 11:14 01/12/17 11:26 01/12/17 11:34 01/12/17 17:06 Prothrombin Time 13.8 Prothrombin Time Ratio 1.1 INR International Normalized Ratio 1.06 Activated Partial Thromboplast Time 27.8 Bedside Glucose 182 134 White Blood Count 6.3 Red Blood Count 4.44 L Hemoglobin 13.6 L Hematocrit 40.9 L Mean Corpuscular Volume 92.1 Mean Corpuscular Hemoglobin 30.6 Mean Corpuscular Hemoglobin Concent 33.3 Red Cell Distribution Width 11.9 Platelet Count 172 Mean Platelet Volume 12.4 H Neutrophils % 60.5 Lymphocytes % 28.7 Monocytes % 6.8 Eosinophils % 2.7 Basophils % 0.8 Nucleated Red Blood Cells % 0.0 Neutrophils # 3.8 Lymphocytes # 1.8 Monocytes # 0.4 Eosinophils # 0.2 Basophils # 0.1 Nucleated Red Blood Cells # 0.0 Test 01/12/17 17:50 01/12/17 20:44 01/13/17 01:50 01/13/17 08:42 Activated Partial Thromboplast Time 42.1 H 64.8 H 95.6 *H Bedside Glucose 133 White Blood Count 6.5 Red Blood Count 4.60 L Hemoglobin 14.2 Hematocrit 42.0 Mean Corpuscular Volume 91.3 Mean Corpuscular Hemoglobin 30.9 Mean Corpuscular Hemoglobin Concent 33.8 Red Cell Distribution Width 11.9 Platelet Count 176 Mean Platelet Volume 12.2 H Neutrophils % 56.5 Lymphocytes % 33.1 Monocytes % 6.4 Eosinophils % 3.1 Basophils % 0.6 Nucleated Red Blood Cells % 0.0 Neutrophils # 3.7 Lymphocytes # 2.2 Monocytes # 0.4 Eosinophils # 0.2 Basophils # 0.0 Nucleated Red Blood Cells # 0.0 Sodium Level 141 Potassium Level 4.0 Chloride Level 101 Carbon Dioxide Level 26 Anion Gap 18 H Blood Urea Nitrogen 18 Creatinine 0.81 Glucose Level 138 Calcium Level 8.9 Magnesium Level 1.7 Test 01/13/17 08:45 Bedside Glucose 142 Medications Medications Current Medications Ondansetron HCl (Zofran Inj) 4 mg Q6H PRN IV NAUSEA AND/OR VOMITING; Start at 00:30 Aspirin (Aspirin) 81 mg DAILY PO Last administered on 01/12/17 08:23; Admin Dose 81 MG; Start 01/12/17 at 09:00 Acetaminophen (Tylenol Tab) 650 mg Q6H PRN PO PAIN LEVEL 1-3 OR FEVER; Start at 00:30 Morphine Sulfate (morphine) 2 mg Q4H PRN IV PAIN LEVEL 7-10; Start 01/12/17 at 00:30 Pantoprazole (Protonix Iv) 40 mg DAILY@06 IV Last administered on 01/13/17 06: 29; Admin Dose 40 MG; Start 01/12/17 at 06:00 Diagnostic Test (Pha) (Accu-Chek) 1 ea 02 XX ; Start 01/13/17 at 02:00 Miscellaneous Information 1 ea NOTE XX ; Start 01/12/17 at 07:00 Glucose (Glutose) 15 gm Q15M PRN PO DECREASED GLUCOSE; Start 01/12/17 at 07:00 Glucose (Glutose) 22.5 gm Q15M PRN PO DECREASED GLUCOSE; Start 01/12/17 at 07: 00 Dextrose (D50w Syringe) 25 ml Q15M PRN IV DECREASED GLUCOSE; Start 01/12/17 at 07:00 Dextrose (D50w Syringe) 50 ml Q15M PRN IV DECREASED GLUCOSE; Start 01/12/17 at 07:00 Glucagon (Glucagen) 1 mg Q15M PRN IM DECREASED GLUCOSE; Start 01/12/17 at 07:00 Glucose (Glutose) 15 gm Q15M PRN BUCCAL DECREASED GLUCOSE; Start 01/12/17 at 07 :00 Atorvastatin Calcium (Lipitor) 40 mg HS PO Last administered on 01/12/17 20:52 ; Admin Dose 40 MG; Start 01/12/17 at 21:00 Metoprolol Tartrate (Lopressor) 25 mg BID PO Last administered on 01/12/17 10: 40; Admin Dose 25 MG; Start 01/12/17 at 09:30 Insulin Glargine (Lantus) 13 unit DAILY@08 SC Last administered on 01/12/17 12 :01; Admin Dose 13 UNIT; Start 01/12/17 at 11:00 FRANKIE WOOD Jan 13, 2017 10:27
--- NOTE | 2017-01-13 10:37 | RADRPT ---
Echocardiogram Report Patient Name: CARO ROMERO Gender: Male Date: 1950 Study Date: 12-Jan-2017 [employer] Brusher: [facility] Location: [id number] Ref. Physician: MASSIEL ALEXANDER Quality: Adequate Procedures: Transthoracic echocardiogram with complete 2D, M-Mode, and doppler examination. Indications: Chest Pain, dilatation of aorta. 2D/M Mode Doppler Measurement Value Normal Ranges Measurement Value Normal Ranges LVIDd 2D 5.0 3.5 - 5.6 cm AV Peak Baltazar 1.2 m/sec LVIDs 2D 3.8 2.1 - 4.1 cm AV Peak PG 6.0 mmHg FS 2D 24.8 % LVOT Peak Baltazar 0.8 m/sec LVPWd 2D 1.3 0.6 - 1.1 cm LVOT Peak PG 2.0 mmHg IVSd 2D 1.3 0.6 - 1.1 cm MV E Peak Baltazar 0.9 m/sec IVS/LVPW 2D 1.0 MV A Peak Baltazar 1.1 m/sec AoR Diam 2D 3.0 2.0 - 3.7 cm MV E/A 0.9 LA/Ao 2D 2 0 - 1 MV Decel Time 236 msec EDV 2D 124.0 cm3 MV E/A 0.9 ESV 2D 52.7 cm3 TR Peak Baltazar 2.2 m/sec LA Dimen 2D 4.9 2.3 - 4.0 cm TR Peak PG 19.0 mmHg Findings Left Ventricle: Normal left ventricular cavity size. Mild concentric left ventricular hypertrophy. Moderate global left ventricular systolic dysfunction. Ejection fraction is visually estimated at 40 %. Tissue Doppler/Mitral Doppler indices are consistent with impaired relaxation (Stage I diastolic dysfunction). Resting Segmental Wall Motion Analysis: Severe hypokinesis of the mid to distal septum and entire apex. Mild hypokinesis of the anterior and inferior costa. Right Ventricle: Normal right ventricular size. Left Atrium: There is moderate enlargement of left atrium. Right Atrium: The right atrium is normal in size. Mitral Valve: Mild mitral leaflet calcification. Mild mitral annular calcification. Mild mitral valve regurgitation. Aortic Valve: Normal appearance of the aortic valve. No significant aortic stenosis or insufficiency. Tricuspid Valve: Normal appearance of the tricuspid valve. Estimated peak PA systolic pressure 22 mmHg. There is trace tricuspid regurgitation. Pulmonic Valve: Pulmonic valve not well visualized. There is trace pulmonic regurgitation. Pericardium: Normal pericardium with no significant pericardial effusion. Aorta: Normal aortic root. IVC: Normal size and normal respiratory collapse consistent with normal right atrial pressure. Conclusions Normal left ventricular cavity size. Mild concentric left ventricular hypertrophy. Moderate global left ventricular systolic dysfunction. Ejection fraction is visually estimated at 40 %. Tissue Doppler/Mitral Doppler indices are consistent with impaired relaxation (Stage I diastolic dysfunction). Severe hypokinesis of the mid to distal septum and entire apex. Mild hypokinesis of the anterior and inferior costa. Mild mitral valve regurgitation. Estimated peak PA systolic pressure 22 mmHg based on RA pressure of 3 mmHg. Electronically Signed By: Andrae Hanson 13-Jan-2017 10:36:46 -0700 Patient Name: CARO ROMERO Study Date: 12-Jan-2017 [id number]
[2017-01-13] MEDS ORDERED: ASPIRIN 325 MG TAB ONE (11:08)
[2017-01-13] MEDS ORDERED: CLOPIDOGREL 300 MG TAB ONE (11:08)
[2017-01-13] MEDS ORDERED: IOHEXOL 350MG/ML 50 ML BTL ONE (11:19)
[2017-01-13] MEDS ORDERED: BIVALIRUDIN 250MG /NS 50 ML 50 ML IVPB ONE (11:47)
[2017-01-13] MEDS ORDERED: SOD CHLORIDE 0.9% 1,000 ML IV SCH (11:58)
[2017-01-13] MEDS ORDERED: HOLD all METFORMIN and METFORMIN CONTAINING medications for 48 hours post procedure. Chec XX ONE (12:00)
[2017-01-13] MEDS ORDERED: ONDANSETRON 4 MG INJ IV PRN (12:00)
[2017-01-13] MEDS ORDERED: morphine 2 MG INJ IV PRN (12:00)
--- NOTE | 2017-01-13 12:19 | OPR ---
Date/Time of Note Date/Time of Note DATE: 01/13/17 TIME: 12:12 Operative Report Free Text/Dictation Procedure Date: 01/13/2017 Procedures Performed: 1)Left heart catheterization with selective left and right coronary angiography. 2)Balloon angioplasty and stenting of the ostial/prox LAD with a Resolute 4.0 x 15 drug eluting stent. Pre-operative Diagnosis:NSTEMI, DM Post-operative Diagnosis:same, single vessel CAD s/p PCI Indications:66 yo M with DM, presenting with angina found to have an NSTEMI trop 2.0. Description of Procedure: After informed consent, the patient was brought to the cardiac catheterization lab. The procedure site was prepped and draped in usual manner. The patient was premedicated with versed 1mg and fentanyl 50 mcg. 2mL lidocaine was injected into the right wrist. Next using the posterior wall technique, the 6/ 5 irish sheath was inserted into the right radial artery. Next using the JL3.5 and JR4, selective angiography of the left and right coronary arteries were obtained. The pigtail was then advanced into the ventricle and hemodynamics obtained. Left ventricle angiography was not obtained. The decision was made to proceed with PCI of the LAD. A JL 3.0 guide was advanced and engaged into the left coronary artery. After appropriate anticoagulation and antiplatelets were given, the PT light support angioplasty wire was first advanced into the Cx for support and then another one advanced past the LAD lesion. Next the 2.0 X 12 balloon was used to dilate the lesion times 2 at a maximum of 14 duglas. Subsequently, the Resolute 4.0 x 15 drug eluting stent was advanced to the lesion and deployed at nominal pressure. Next the stent was post dilated with the 4.0 X 6 noncompliant balloon times 3 at a maximum of 12 duglas. Final angiography revealed AFSHIN 3 flow, no edge dissection, and appropriate stent expansion. Next all equipment was removed and hemostasis was achieved by TR band. Findings: Anatomy/Hemodynamics: Left main:normal LAD:ostial to prox 95% lesion in a very large vessel Diagonal:luminal irregularities Circumflex:luminal irregularities Obtuse marginal:luminal irregularities RCA:luminal irregularities PDA:luminal irregularities PLV:luminal irregularities LV angiography:not done LV-Ao:no gradient LVEDP: 15 mmHg Contrast used:200 mL Fluoroscopy time:18.8 Medications used: Versed 1 Fentanyl 50 ASA 325mg plavix 600mg Angiomax bolus plus drip Equipment used: 6 irish JL 3.0 guide PT 2 light support angioplasty wire 2 x 12 balloon Resolute 4.0 x 15 drug eluting stent 4.0 x 6 noncompliant balloon Assessment: Single vessel CAD s/p successful PCI of ostial/prox LAD NSTEMI DM Plan: -observe overnight in ICU -possible d/c in am -ASA 81mg lifelong -plavix 75mg at least one year FRANKIE WOOD Jan 13, 2017 12:19
--- NOTE | 2017-01-13 13:49 | PN ---
Date/Time of Note Date/Time of Note DATE: 01/13/17 TIME: 13:48 Assessment/Plan Lines/Catheters IV Catheter Type (from Nrsg): Saline Lock Sampson in Place (from Nrsg): No Assessment/Plan Chief Complaint/Hosp Course Aortic aneurysm Problems: Assessment/Plan Additional Assessment/Plan This is a 66-year-old male with a history of hypertension and diabetes. Patient was admitted with chest pain was diagnosed with non-ST elevation SD part of his workup which which included a CAT scan of the chest revealed an ascending aortic aneurysm 3.9 cm the first CAT scan was inconclusive for dissection the second CAT scan has showed there is no dissection patient does not have any typical pain that is for aortic dissection and is hemodynamically stable We will monitor the aortic aneurysm. Repeat CAT scan in 6 months Subjective 24 Hr Interval Summary Constitutional: improved Pain Control: mild Exam/Review of Systems Vital Signs Vitals Vital Signs Date Time Temp Pulse Resp B/P Pulse Ox O2 Delivery O2 Flow Rate FiO2 01/13/17 12:59 60 14 107/71 100 Nasal Cannula 3.0 01/13/17 12:39 98.0 Intake and Output 01/12/17 01/12/17 01/13/17 15:00 23:00 07:00 Intake Total 500 ml 700 ml Output Total 950 ml Balance 500 ml -250 ml Exam ENMT: mucosa pink and moist, nl external ears & nose, nl lips & teeth, nl nasal mucosa & septum Neck: non-tender, supple Respiratory: clear to auscultation, normal air movement Cardiovascular: nl pulses, regular rate and rhythm Results Result Diagram: 01/13/17 0842 01/13/17 0842 BELL HOFFMAN MD Jan 13, 2017 13:49
--- NOTE | 2017-01-13 14:16 | PN ---
Date/Time of Note Date/Time of Note DATE: 01/13/17 TIME: 14:13 Assessment/Plan VTE Prophylaxis VTE Prophylaxis Intervention: SCD's Lines/Catheters IV Catheter Type (from [facility]): Saline Lock Urinary Cath still in place: No Assessment/Plan Chief Complaint/Hosp Course #1 NSTEMI status post PCI with stent placement in the ostial #2 Ascending aortic aneurysm Cardiothoracic surgery consultation appreciated, plan is for repeat CT in 6 months #3 diabetes mellitus: We will check a hemoglobin A1c. Patient does not recall all medications he denies use of any insulin right now. Will put patient on insulin sliding scale. #4 Acute kidney injury-resolved #5 Hypertension: Patient's blood pressures on the lower side this time Continue Coreg as tolerated DVT and GI prophylaxis: SCDs, Protonix Problems: Subjective 24 Hr Interval Summary Constitutional: no complaints Exam/Review of Systems Vital Signs Vitals Vital Signs Date Time Temp Pulse Resp B/P Pulse Ox O2 Delivery O2 Flow Rate FiO2 01/13/17 12:59 60 14 107/71 100 Nasal Cannula 3.0 01/13/17 12:39 98.0 Intake and Output 01/12/17 01/12/17 01/13/17 15:00 23:00 07:00 Intake Total 500 ml 700 ml Output Total 950 ml Balance 500 ml -250 ml Exam Constitutional: alert Respiratory: clear to auscultation Cardiovascular: regular rate and rhythm Gastrointestinal: soft, No distended Musculoskeletal: nl extremities to inspection Results Result Diagram: 01/13/17 0842 01/13/17 0842 Results 24 hrs Laboratory Tests Test 01/12/17 17:06 01/12/17 17:50 01/12/17 20:44 01/13/17 01:50 Bedside Glucose 134 133 Activated Partial Thromboplast Time 42.1 H 64.8 H Test 01/13/17 08:42 01/13/17 08:45 White Blood Count 6.5 Red Blood Count 4.60 L Hemoglobin 14.2 Hematocrit 42.0 Mean Corpuscular Volume 91.3 Mean Corpuscular Hemoglobin 30.9 Mean Corpuscular Hemoglobin Concent 33.8 Red Cell Distribution Width 11.9 Platelet Count 176 Mean Platelet Volume 12.2 H Neutrophils % 56.5 Lymphocytes % 33.1 Monocytes % 6.4 Eosinophils % 3.1 Basophils % 0.6 Nucleated Red Blood Cells % 0.0 Neutrophils # 3.7 Lymphocytes # 2.2 Monocytes # 0.4 Eosinophils # 0.2 Basophils # 0.0 Nucleated Red Blood Cells # 0.0 Activated Partial Thromboplast Time 95.6 *H Sodium Level 141 Potassium Level 4.0 Chloride Level 101 Carbon Dioxide Level 26 Anion Gap 18 H Blood Urea Nitrogen 18 Creatinine 0.81 Glucose Level 138 Calcium Level 8.9 Magnesium Level 1.7 Bedside Glucose 142 Medications Medications Current Medications Ondansetron HCl (Zofran Inj) 4 mg Q6H PRN IV NAUSEA AND/OR VOMITING; Start at 00:30 Aspirin (Aspirin) 81 mg DAILY PO Last administered on 01/12/17 08:23; Admin Dose 81 MG; Start 01/12/17 at 09:00 Acetaminophen (Tylenol Tab) 650 mg Q6H PRN PO PAIN LEVEL 1-3 OR FEVER; Start at 00:30 Morphine Sulfate (morphine) 2 mg Q4H PRN IV PAIN LEVEL 7-10; Start 01/12/17 at 00:30 Pantoprazole (Protonix Iv) 40 mg DAILY@06 IV Last administered on 01/13/17 06: 29; Admin Dose 40 MG; Start 01/12/17 at 06:00 Diagnostic Test (Pha) (Accu-Chek) 1 ea 02 XX ; Start 01/13/17 at 02:00 Miscellaneous Information 1 ea NOTE XX ; Start 01/12/17 at 07:00 Glucose (Glutose) 15 gm Q15M PRN PO DECREASED GLUCOSE; Start 01/12/17 at 07:00 Glucose (Glutose) 22.5 gm Q15M PRN PO DECREASED GLUCOSE; Start 01/12/17 at 07: 00 Dextrose (D50w Syringe) 25 ml Q15M PRN IV DECREASED GLUCOSE; Start 01/12/17 at 07:00 Dextrose (D50w Syringe) 50 ml Q15M PRN IV DECREASED GLUCOSE; Start 01/12/17 at 07:00 Glucagon (Glucagen) 1 mg Q15M PRN IM DECREASED GLUCOSE; Start 01/12/17 at 07:00 Glucose (Glutose) 15 gm Q15M PRN BUCCAL DECREASED GLUCOSE; Start 01/12/17 at 07 :00 Atorvastatin Calcium (Lipitor) 40 mg HS PO Last administered on 01/12/17 20:52 ; Admin Dose 40 MG; Start 01/12/17 at 21:00 Insulin Glargine (Lantus) 13 unit DAILY@08 SC Last administered on 01/12/17 12 :01; Admin Dose 13 UNIT; Start 01/12/17 at 11:00 Morphine Sulfate (morphine) 2 mg Q2H PRN IV FOR NON CARDIAC PAIN (4-10); Start 01/13/17 at 12:00 Ondansetron HCl 4 mg 4 mg Q4H PRN IV NAUSEA AND/OR VOMITING; Start 01/13/17 at 12:00 Sodium Chloride (NS) 1,000 ml @ 75 mls/hr [id number] IV Last administered on 01/13 13:34; Admin Dose 75 MLS/HR; Start 01/13/17 at 11:58; Stop 01/13/17 at 16: 57 Clopidogrel Bisulfate (plaVIX) 75 mg DAILY PO ; Start 01/14/17 at 09:00 Carvedilol (Coreg) 6.25 mg BID PO ; Start 01/13/17 at 21:00 RIP RODRIGUEZ Jan 13, 2017 14:16
[2017-01-13] MEDS ORDERED: MAGNESIUM SULFATE 2 GM/50 ML 50 ML IVPB ONE (14:30)
[2017-01-13] MEDS: ATORVASTATIN 40 MG TAB PO SCH (21:30)
[2017-01-14] VITALS (7 sets, daily range): BP systolic 110–123; BP diastolic 67–76; PULSE 62–73; RESP 16–19
[2017-01-14] MEDS: ACCU-CHEK XX SCH (02:00)
[2017-01-14] MEDS: PANTOPRAZOLE 40 MG INJ IV SCH (05:42)
[2017-01-14 07:22] LABS: ADD SCAN DIFF NO
[2017-01-14 07:35] LABS: BASOPHILS % 0.6 % (0.0-2.0); EOSINOPHILS # 0.2 10^3/ul (0.0-0.5); EOSINOPHILS % 3.1 % (0.0-7.0); HEMATOCRIT 39.3 % (42.0-52.0); HEMOGLOBIN 12.9 g/dl (14.0-18.0); LYMPHOCYTES # 1.7 10^3/ul (0.8-2.9); LYMPHOCYTES % 26.7 % (15.0-51.0); MEAN CORPUSCULAR HEMOGLOBIN 30.4 pg (29.0-33.0); MEAN CORPUSCULAR HGB CONC 32.8 g/dl (32.0-37.0); MEAN CORPUSCULAR VOLUME 92.7 fl (82.0-101.0); MEAN PLATELET VOLUME 12.3 fl (7.4-10.4); MONOCYTE # 0.4 10^3/ul (0.3-0.9); MONOCYTES % 6.7 % (0.0-11.0); NEUTROPHILS % 62.7 % (39.0-77.0); PLATELET COUNT 168 10^3/UL (140-415); RED BLOOD COUNT 4.24 10^6/ul (4.70-6.10); RED CELL DISTRIBUTION WIDTH 12.2 % (11.5-14.5); WHITE BLOOD COUNT 6.4 10^3/ul (4.8-10.8)
[2017-01-14 07:46] LABS: MAGNESIUM 1.9 mg/dl (1.7-2.5); PHOSPHORUS 3.6 mg/dl (2.5-4.9)
[2017-01-14 07:49] LABS: CALCIUM 8.8 mg/dl (8.4-10.2); CREATININE 0.85 mg/dl (0.61-1.24); POTASSIUM 4.4 mmol/L (3.5-5.1)
[2017-01-14] MEDS: INSULIN ASPART [NOVOLOG] 3 ML PEN SC SCH ×2 (07:55→11:50)
[2017-01-14] MEDS: INSULIN GLARGINE [LANtus] 3 ML PEN SC SCH (08:31)
[2017-01-14] MEDS ORDERED: CLOPIDOGREL 75 MG TAB PO SCH (09:00)
[2017-01-14] MEDS ORDERED: LISINOPRIL 5 MG TAB PO SCH (09:00)
[2017-01-14] MEDS: ASPIRIN 81 MG TAB PO SCH (09:16)
--- NOTE | 2017-01-14 11:29 | CONS ---
Date/Time of Note Date/Time of Note DATE: 01/14/17 TIME: 11:27 Assessment/Plan Assessment/Plan Chief Complaint/Hosp Course NSTEMI: Trop up to 2. CTA negative for dissection. Cath with ostial LAD lesion s /p successful PCI. No residual lesions. Doing well. No symptoms. Ischemic cardiomyopathy: EF 40% with LAD territory WMA. Expect to get better post PCI. Compensated by exam DM HTN -ok for d/c -ASA 81mg -plavix 75mg daily for one year, probably longer -lipitor 40mg -coreg 6.25mg BID -start lisinopril 5mg Problems: Consultation Date/Type/Reason Admit Date/Time Jan 11, 2017 at 19:38 Initial Consult Date 01/12/17 Type of Consultation: Cardiology Referring Provider: MASSIEL ALEXANDER 24 HR Interval Summary Free Text/Dictation No o/n events. Feels well. No chest pain. Exam/Review of Systems Vital Signs Vitals Vital Signs Date Time Temp Pulse Resp B/P Pulse Ox O2 Delivery O2 Flow Rate FiO2 01/14/17 08:24 69 01/14/17 07:20 98.0 16 123/76 99 01/13/17 14:29 3.0 01/13/17 13:29 Nasal Cannula Intake and Output 01/13/17 01/13/17 01/14/17 15:00 23:00 07:00 Intake Total 0 ml 640 ml 400 ml Output Total 350 ml Balance -350 ml 640 ml 400 ml Exam Constitutional: alert, oriented Psych: nl mood/affect, no complaints Head: atraumatic, normocephalic Neck: No jvd Respiratory: clear to auscultation, No crackles/rales Cardiovascular: regular rate and rhythm, No edema Gastrointestinal: non-tender, soft Neurological: nl mental status, nl speech Results Result Diagram: 01/14/1718 01/14/17 0618 Results 24 hrs Laboratory Tests Test 01/13/17 15:34 01/13/17 21:17 01/14/17 06:18 01/14/17 08:16 Bedside Glucose 85 95 110 White Blood Count 6.4 Red Blood Count 4.24 L Hemoglobin 12.9 L Hematocrit 39.3 L Mean Corpuscular Volume 92.7 Mean Corpuscular Hemoglobin 30.4 Mean Corpuscular Hemoglobin Concent 32.8 Red Cell Distribution Width 12.2 Platelet Count 168 Mean Platelet Volume 12.3 H Neutrophils % 62.7 Lymphocytes % 26.7 Monocytes % 6.7 Eosinophils % 3.1 Basophils % 0.6 Nucleated Red Blood Cells % 0.0 Neutrophils # 4.0 Lymphocytes # 1.7 Monocytes # 0.4 Eosinophils # 0.2 Basophils # 0.0 Nucleated Red Blood Cells # 0.0 Sodium Level 142 Potassium Level 4.4 Chloride Level 102 Carbon Dioxide Level 28 Anion Gap 16 Blood Urea Nitrogen 14 Creatinine 0.85 Glucose Level 92 # Calcium Level 8.8 Phosphorus Level 3.6 Magnesium Level 1.9 Medications Medications Current Medications Ondansetron HCl (Zofran Inj) 4 mg Q6H PRN IV NAUSEA AND/OR VOMITING; Start at 00:30 Aspirin (Aspirin) 81 mg DAILY PO Last administered on 01/14/17 09:16; Admin Dose 81 MG; Start 01/12/17 at 09:00 Acetaminophen (Tylenol Tab) 650 mg Q6H PRN PO PAIN LEVEL 1-3 OR FEVER; Start at 00:30 Morphine Sulfate (morphine) 2 mg Q4H PRN IV PAIN LEVEL 7-10; Start 01/12/17 at 00:30 Pantoprazole (Protonix Iv) 40 mg DAILY@06 IV Last administered on 01/14/17 05: 42; Admin Dose 40 MG; Start 01/12/17 at 06:00 Diagnostic Test (Pha) (Accu-Chek) 1 ea 02 XX ; Start 01/13/17 at 02:00 Miscellaneous Information 1 ea NOTE XX ; Start 01/12/17 at 07:00 Glucose (Glutose) 15 gm Q15M PRN PO DECREASED GLUCOSE; Start 01/12/17 at 07:00 Glucose (Glutose) 22.5 gm Q15M PRN PO DECREASED GLUCOSE; Start 01/12/17 at 07: 00 Dextrose (D50w Syringe) 25 ml Q15M PRN IV DECREASED GLUCOSE; Start 01/12/17 at 07:00 Dextrose (D50w Syringe) 50 ml Q15M PRN IV DECREASED GLUCOSE; Start 01/12/17 at 07:00 Glucagon (Glucagen) 1 mg Q15M PRN IM DECREASED GLUCOSE; Start 01/12/17 at 07:00 Glucose (Glutose) 15 gm Q15M PRN BUCCAL DECREASED GLUCOSE; Start 01/12/17 at 07 :00 Atorvastatin Calcium (Lipitor) 40 mg HS PO Last administered on 01/13/17 21:30 ; Admin Dose 40 MG; Start 01/12/17 at 21:00 Insulin Glargine (Lantus) 13 unit DAILY@08 SC Last administered on 01/14/17 08 :31; Admin Dose 13 UNIT; Start 01/12/17 at 11:00 Morphine Sulfate (morphine) 2 mg Q2H PRN IV FOR NON CARDIAC PAIN (4-10); Start 01/13/17 at 12:00 Ondansetron HCl (Zofran Inj) 4 mg Q4H PRN IV NAUSEA AND/OR VOMITING; Start at 12:00 Clopidogrel Bisulfate (plaVIX) 75 mg DAILY PO Last administered on 01/14/17 09 :18; Admin Dose 75 MG; Start 01/14/17 at 09:00 Carvedilol (Coreg) 6.25 mg BID PO Last administered on 01/14/17 09:17; Admin Dose 6.25 MG; Start 01/13/17 at 21:00 Lisinopril (Zestril) 5 mg DAILY PO Last administered on 01/14/17 09:18; Admin Dose 5 MG; Start 01/14/17 at 09:00 FRANKIE WOOD Jan 14, 2017 11:29
[2017-01-14] MEDS ORDERED: LISI-313 PO (11:54)
[2017-01-14] MEDS ORDERED: ATOR40TA68 PO (11:54)
[2017-01-14] MEDS ORDERED: NITR0.4T6 SL (11:54)
[2017-01-14] MEDS ORDERED: CLOP75TA28 PO (11:54)
[2017-01-14] MEDS ORDERED: ASPI81TA3 PO (11:54)
[2017-01-14] MEDS ORDERED: CARV6.2579 PO (11:54)
[2017-01-14] MEDS ORDERED: METF500T4 PO (11:57)
[2017-01-14] MEDS ORDERED: GLIP5TAB13 PO (11:57)
--- NOTE | 2017-01-14 11:58 | PDOCDIS ---
Discharge Instructions CONDITION Patient Condition: Good HOME CARE INSTRUCTIONS: Special Diet: carb controlled ACTIVITY: Activity Restrictions: No Restrictions FOLLOW UP/APPOINTMENTS Follow-up Plan F/U WITH YOUR PCP IN 1-2 WEEKS AND F/U WITH A MAT MAKER RIP RODRIGUEZ Jan 14, 2017 11:58
--- NOTE | 2017-01-14 16:03 | DS ---
Date/Time of Note Date/Time of Note DATE: 01/14/17 TIME: 15:55 Discharge Summary Admission/Discharge Info Admit Date/Time Jan 11, 2017 at 19:38 Discharge Date/Time Jan 14, 2017 at 15:00 Discharge Diagnosis #1 NSTEMI status post PCI with stent placement in the ostial DC with aspirin, Plavix, Lipitor, beta-harrison and MERY #2 Ascending aortic aneurysm Cardiothoracic surgery consultation appreciated, plan is for repeat CT in 6 months #3 diabetes mellitus: A1c severely elevated 10.9 patient not on any diabetic medications but has been told about having diabetes in the past DC with metformin and glipizide and patient is to follow-up with a gas specialist as an outpatient #4 Acute kidney injury-resolved #5 Hypertension: BP stable, DC with Coreg and lisinopril #6 Ischemic cardiomyopathy: EF 40% with LAD territory WMA. Expect to get better post PCI. Compensated by exam Patient Condition: Good Hospital Course Patient is 66-year-old male with a history of diabetes and medical hypertension , patient is not on any diabetic medications. Patient presented with chest pain and non-STEMI patient was seen by cardiology, PCI was done with stent placement in the ostial. Patient did have ischemic cardiomyopathy with EF of 40 %, expect to get better post PCI and patient was compensated. Patient's A1c was checked and was elevated at 10.9. Patient was told that he needs follow-up with gas specialist and he stated that he early has plans to do so for his diabetes. Patient was told about the importance of compliance with his cardiac medications he stated that he understood. Patient was clear for DC per cardiology. On the day of discharge patient vitals, labs and physical exam are stable, he had no acute complaints and questions are answered. Home Meds Active Scripts Glipizide* (Glipizide*) 5 Mg Tablet, 5 MG PO AC BREAKFAST, #60 TAB Prov:MARION RODRIGUEZMark 01/14/17 Metformin Hcl* (Metformin Hcl*) 500 Mg Tablet, 500 MG PO WITH BREAKFAST DINNE, # 60 TAB 1 Refill Prov:MARION RODRIGUEZMark 01/14/17 Nitroglycerin* (Nitroglycerin* SL) 0.4 Mg Tab.subl, 0.4 MG SL Q5MIN Y for CHEST PAIN, #90 BOTTLE Prov:MARION RODRIGUEZMark 01/14/17 Aspirin (Aspirin) 81 Mg Chew, 81 MG PO DAILY, #90 TAB Prov:RIP RODRIGUEZ 01/14/17 Lisinopril* (Lisinopril*) 5 Mg Tablet, 5 MG PO DAILY, #60 TAB Prov:RIP RODRIGUEZ 01/14/17 Carvedilol* (Carvedilol*) 6.25 Mg Tablet, 6.25 MG PO BID, #60 TAB 1 Refill Prov:RIP RODRIGUEZ 01/14/17 Atorvastatin* (Atorvastatin*) 40 Mg Tablet, 40 MG PO HS, #60 TAB Prov:RIP RODRIGUEZ 01/14/17 Clopidogrel Bisulfate (Clopidogrel) 75 Mg Tablet, 75 MG PO DAILY, #90 TAB Prov:RIP RODRIGUEZ 01/14/17 Follow-up Plan Follow up with PCP, cardiology and gas specialist Primary Care Provider Care Physician No Primary Time spent on discharge: > 30 minutes RIP RODRIGUEZ Jan 14, 2017 16:03
--- NOTE | 2017-01-14 17:35 | RADRPT ---
Vent Rate: 60 bpm RR Interval: 0 msec TX Interval: 160 msec QRS Duration: 78 msec QT Interval: 404 msec QTC Interval: 404 msec P-R-T [place]: 44 - 30 - 94 degrees Normal sinus rhythm Nonspecific T wave abnormality Abnormal ECG Electronically Signed By: Clovis Riley [id number]
== END 2017-01-14 15:00 | disposition home or self-care (01) | DRG 247 ==
LOC: FTE 16:23 → MS4 19:38 → ICU 01-13 10:05 → TEL 01-13 20:45
PROVIDERS: ADMIT Family Medicine; ATTEND Family Medicine
PROC: 4A023N7 Measurement of Cardiac Sampling and Pressure, Left Heart, Percutaneous Approach (ICD-10-PCS; 2017-01-13)
PROC: B211YZZ Fluoroscopy of Multiple Coronary Arteries using Other Contrast (ICD-10-PCS; 2017-01-13)
PROC: 027034Z Dilation of Coronary Artery, One Artery with Drug-eluting Intraluminal Device, Percutaneous Approach (ICD-10-PCS; principal; 2017-01-13 10:30)
PROC: 3E033PZ Introduction of Platelet Inhibitor into Peripheral Vein, Percutaneous Approach (ICD-10-PCS; 2017-01-13 10:30)
DX: I21.4 Non-ST elevation (NSTEMI) myocardial infarction (principal); N17.9 Acute kidney failure, unspecified; I71.2 Thoracic aortic aneurysm, without rupture; I25.10 Atherosclerotic heart disease of native coronary artery without angina pectoris; I10 Essential (primary) hypertension; E11.9 Type 2 diabetes mellitus without complications; I25.5 Ischemic cardiomyopathy; R07.9 Chest pain, unspecified; Z79.4 Long term (current) use of insulin; Z79.02 Long term (current) use of antithrombotics/antiplatelets; Z79.82 Long term (current) use of aspirin
CPT/HCPCS: 71010; 71275; 80048; 80053; 80061; 82550; 82553; 82962; 83036; 83735; 83880; 84100; 84443; 84484; 85025; 85610; 85730; 92928; 93005; 93306; 93458; C1725; C1769; C1876; C1887; C9113; J0583; J1644; J1815; J2250; J2270; J3010; J3475; J7030; J7040; Q9967

== ENCOUNTER 2018-09-24 20:55 | Inpatient (IN) | payer MEDICAID ==
[~2018-09-24] VITALS: Ht 170.2 cm; Wt 92.6 kg
[~2018-09-24 20:55] MED LIST: ASPI-831 PO; ATOR40TA68 PO; CARV6.2579 PO; CLOP75TA28 PO; GLIP5TAB13 PO; LISI-313 PO; METF500T24 PO; NITR0.4T32 SL
[2018-09-24] MEDS ORDERED: ACETAMINOPHEN 325 MG TAB PO STA (21:56)
[2018-09-24] MEDS ORDERED: CEFTRIAXONE 1 GM/50 ML (PMX) 50 ML IVPB STA (21:56)
[2018-09-24] MEDS ORDERED: SODIUM CHLORIDE 0.9% 1L BAG IV* STA ×2 (21:56→22:22)
--- NOTE | 2018-09-24 22:17 | ERD ---
ER Documentation Chief Complaint Chief Complaint fever/cough/sob x 5 days HPI The patient is-year-old male, presenting to the ER because of fever, congestion, cough, dyspnea from the cough for the last 4-5 days. He noticed fever today, denies nasal congestion, denies facial pain, neck pain, chest pain, abdominal pain, vomiting, dysuria. He does not smoke Past medical history: Diabetes mellitus, hypertension, dyslipidemia, ascending aortic aneurysm, ischemic cardiomyopathy with low EF of 40%, CAD Past surgical history: Stent PCI ROS All systems reviewed and are negative except as per history of present illness. Medications Home Meds Active Scripts Glipizide* (Glipizide*) 5 Mg Tablet, 5 MG PO AC BREAKFAST, #60 TAB Prov:RIP RODRIGUEZ 01/14/17 Metformin Hcl* (Metformin Hcl*) 500 Mg Tablet, 500 MG PO WITH BREAKFAST DINNE, #60 TAB 1 Refill Prov:RIP RODRIGUEZ 01/14/17 Nitroglycerin* (Nitroglycerin* SL) 0.4 Mg Tab.subl, 0.4 MG SL Q5MIN PRN for CHEST PAIN, #90 BOTTLE Prov:RIP RODRIGUEZ 01/14/17 Aspirin (Aspirin) 81 Mg Chew, 81 MG PO DAILY, #90 TAB Prov:RIP RODRIGUEZ 01/14/17 Lisinopril* (Lisinopril*) 5 Mg Tablet, 5 MG PO DAILY, #60 TAB Prov:RIP RODRIGUEZ 01/14/17 Carvedilol* (Carvedilol*) 6.25 Mg Tablet, 6.25 MG PO BID, #60 TAB 1 Refill Prov:RIP RODRIGUEZ 01/14/17 Atorvastatin* (Atorvastatin*) 40 Mg Tablet, 40 MG PO HS, #60 TAB Prov:RIP RODRIGUEZ 01/14/17 Clopidogrel Bisulfate (Clopidogrel) 75 Mg Tablet, 75 MG PO DAILY, #90 TAB Prov:RIP RODRIGUEZ 01/14/17 Allergies Allergies: Coded Allergies: No Known Allergy (Unverified , 09/24/18) PMhx/Soc History of Surgery: No Anesthesia Reaction: No Hx Neurological Disorder: No Hx Respiratory Disorders: No Hx Cardiac Disorders: Yes Hx Psychiatric Problems: No Hx Miscellaneous Medical Probl: No Hx Alcohol Use: No Hx Substance Use: No Hx Tobacco Use: No Physical Exam Vitals Vital Signs Date Temp Pulse Resp B/P (MAP) Pulse Ox O2 O2 Flow FiO2 Time Delivery Rate 09/24/18 99.5 81 19 121/66 96 Nasal 2.0 23:23 (84) Cannula 09/24/18 Nasal 2 22:30 Cannula 09/24/18 101.5 22:28 09/24/18 101.5 89 18 135/64 93 21:25 (87) Physical Exam Const: No acute distress. Head: Atraumatic. Eyes: Normal Conjunctiva. ENT: Normal External Ears, Nose and Mouth. Bilateral tympanic membranes and oropharynx are within normal limit Neck: Full range of motion. No meningismus. Resp: Clear to auscultation bilaterally. Cardio: Regular rate and rhythm. Abd: Soft, non distended, normal bowel sounds, non tender. Skin: No petechiae or rashes. Back: No midline or flank tenderness. Ext: No cyanosis, or edema. Neur: Awake and alert. No focal deficit Psych: Normal Mood and Affect. Result Diagram: 09/24/188 09/24/188 Results 24 hrs Laboratory Tests Test 09/24/18 22:18 09/24/18 22:19 09/24/18 22:28 09/24/18 23:56 White Blood Count 13.8 10^3/ul Red Blood Count 3.98 10^6/ul Hemoglobin 11.9 g/dl Hematocrit 36.0 % Mean Corpuscular 90.5 fl Volume Mean Corpuscular 29.9 pg Hemoglobin Mean Corpuscular 33.1 g/dl Hemoglobin Concen t Red Cell 12.0 % Distribution Width Platelet Count 262 10^3/UL Mean Platelet 11.1 fl Volume Immature 1.400 % Granulocytes % Neutrophils % 77.8 % Lymphocytes % 9.5 % Monocytes % 10.8 % Eosinophils % 0.2 % Basophils % 0.3 % Nucleated Red 0.0 /100WBC Blood Cells % Immature 0.200 10^3/ul Granulocytes # Neutrophils # 10.7 10^3/ul Lymphocytes # 1.3 10^3/ul Monocytes # 1.5 10^3/ul Eosinophils # 0.0 10^3/ul Basophils # 0.0 10^3/ul Nucleated Red 0.0 10^3/ul Blood Cells # Prothrombin Time 14.1 Sec Prothrombin Time 1.1 Ratio INR International 1.08 Normalized Ratio Activated 31.4 Sec Partial Thrombopl ast Time Sodium Level 136 mmol/L Potassium Level 4.3 mmol/L Chloride Level 97 mmol/L Carbon Dioxide 24 mmol/L Level Anion Gap 15 Blood Urea 22 mg/dl Nitrogen Creatinine 0.95 mg/dl Est Glomerular > 60 mL/min Filtrat Rate mL/min Glucose Level 216 mg/dl Lactic Acid Level 1.1 mmol/L 1.2 mmol/L Calcium Level 9.1 mg/dl Total Bilirubin 0.6 mg/dl Direct Bilirubin 0.00 mg/dl Indirect 0.6 mg/dl Bilirubin Aspartate Amino 11 IU/L Transf (AST/SGOT) Alanine 12 IU/L Aminotransferase (ALT/SGPT) Alkaline 76 IU/L Phosphatase Troponin I < 0.012 ng/ml Total Protein 7.1 g/dl Albumin 3.8 g/dl Globulin 3.30 g/dl Albumin/Globulin 1.15 Ratio Urine Color YELLOW Urine Clarity CLEAR Urine pH 5.0 Urine Specific 1.025 [place] Urine Ketones 1+ mg/dL Urine Nitrite NEGATIVE mg/dL Urine Bilirubin NEGATIVE mg/dL Urine 1+ mg/dL Urobilinogen Urine Leukocyte NEGATIVE Joselito/ul Esterase Urine Microscopic 1 /HPF RBC Urine Microscopic 1 /HPF WBC Urine Mucus MODERATE /HPF Urine Hemoglobin NEGATIVE mg/dL Urine Glucose NEGATIVE mg/dL Urine Total 1+ mg/dl Protein Bedside Urine pH 5.0 (LAB) Bedside Urine 2+ Protein (LAB) Bedside Urine Negative Glucose (UA) Bedside Urine 2+ Ketones (LAB) Bedside Urine Trace-lysed Blood Bedside Urine Negative Nitrite (LAB) Bedside Urine Negative Leukocyte Esteras e (L Current Medications Medications Dose Sig/Miguel Start Time Status Last (Trade) Ordered Route PRN Stop Time Admin Dose Reason Admin Sodium 2,790 ml BOLUS OVER 2 09/24/18 Cancel Chloride HOURS STAT 21:56 (NS) IV* 09/24/18 21:57 650 mg ONCE STAT 09/24/18 DC 09/24/18 Acetaminophen PO 21:56 22:28 (Tylenol 09/24/18 21:57 Tab) Ceftriaxone 50 ml @ ONCE STAT 09/24/18 DC 09/24/18 Sodium 100 mls/hr IVPB 21:56 22:20 09/24/18 22:25 Sodium 1,980 ml BOLUS OVER 2 09/24/18 DC 09/24/18 Chloride HOURS STAT 22:22 22:39 (NS) IV* 09/24/18 22:24 Azithromycin 250 ml @ ONCE ONCE 09/25/18 09/25/18 250 mls/hr IVPB 00:30 00:18 09/25/18 01:29 Procedures/MDM [place] [address] Radiology Main Line: [phone] DIAGNOSTIC IMAGING REPORT Patient: CARO ROMERO : 1950 Age: 67 Sex: M MR #: [id number] DOS: 09/24/18 2156 Ordering MD: MICHI ZAPATA MD Location: E/R Room/Bed: PROCEDURE: XR Chest. CLINICAL INDICATION: Sepsis TECHNIQUE: Frontal chest x-ray was obtained. COMPARISON: None. FINDINGS: The heart is not enlarged. Mediastinum is not widened. No hilar masses seen. Interstitial infiltrate is seen in the retrocardiac left lower lobe.. There is no effusion or pneumothorax. The osseous structures appear normal. IMPRESSION: Left lower lobe confluent interstitial infiltrate. Question pneumonia. .Sanjay Lange MD, MD Date Time Electronically viewed and signed by .Sanjay Lange MD, MD on 09/24/2018 22:36 .A/ CC: MICHI ZAPATA MD [id number] EKG: Read by emergency physician Rate/Rhythm: Normal Sinus Rhythm 87 beats/min QRS, ST, T-waves: No ST elevation, no T inversion Impression: Normal EKG MEDICAL MAKING DECISION: The patient is a 67-year-old male, presenting with acute pneumonia, acute hypoxemia. He was treated with ideal body weight IV fluid for clinical dehydration, acetaminophen for fever, Rocephin IV and Zithromax IV for acute pneumonia with good response, he improved well with 2 L nasal cannula The differential diagnoses considered include but are not limited to asthma, COPD, pneumonia, pulmonary embolus, pleural effusion, congestive heart failure. Departure Diagnosis: Primary Impression: PNA (pneumonia) Additional Impressions: Hypoxemia Anemia Condition: Stable Comments I discussed the findings with the patient. I discussed the patient with the hospitalist Dr Gar 12:15 am who was made aware of the lab, the treatment, the patient condition. The patient is admitted to [facility] Disclaimer: Inadvertent spelling and grammatical errors are likely due to EHR/dictation software use and do not reflect on the overall quality of patient care. Also, please note that the electronic time recorded on this note does not necessarily reflect the actual time of the patient encounter. LOS MAYORGA MD Sep 24, 2018 22:16
[2018-09-25] VITALS (12 sets, daily range): BP systolic 119–134; BP diastolic 60–70; PULSE 76–84; RESP 18–28; Ht 170.2 cm; Wt 92.6 kg
[2018-09-25] MEDS ORDERED: AZITHROMYCIN 500MG/NS (PMX) 250 ML IVPB ONE (00:30)
[2018-09-25] MEDS ORDERED: GLUCOSE GEL 15 GRAM TUBE PO PRN ×2 (02:30)
[2018-09-25] MEDS ORDERED: CEFTRIAXONE 1 GM/50 ML (PMX) 50 ML IVPB SCH (02:30)
[2018-09-25] MEDS ORDERED: GLUCAGON 1 MG INJ IM PRN (02:30)
[2018-09-25] MEDS ORDERED: DEXTROSE 50% 50 ML SYRINGE IV PRN ×2 (02:30)
[2018-09-25] MEDS ORDERED: GLUCOSE GEL 15 GRAM TUBE BUCCAL PRN (02:30)
[2018-09-25] MEDS ORDERED: NITROGLYCERIN (SL) 0.4 MG TAB SL PRN (02:30)
[2018-09-25] MEDS ORDERED: ACETAMINOPHEN 325 MG TAB PO PRN (02:30)
[2018-09-25] MEDS ORDERED: ONDANSETRON 4 MG INJ IV PRN (02:30)
[2018-09-25] MEDS ORDERED: NACL 0.9% 3 ML SYG IV SCH (02:30)
[2018-09-25] MEDS: SOD CHLORIDE 0.9% 1,000 ML IV SCH ×3 (02:33→17:38)
--- NOTE | 2018-09-25 06:11 | HP ---
Date/Time of Note Date/Time of Note DATE: 09/25/18 TIME: 06:06 Assessment/Plan VTE Prophylaxis SCD applied (from Nsg): Yes Pharmacological prophylaxis: NA/contraindicated Pharm contraindication: low risk/ambulating, other (Patient on dual antiplatelets. No blood thinner for now because of the risk of bleeding. Patient also ambulatory) Lines/Catheters IV Catheter Type (from Nrsg): Peripheral IV Assessment/Plan Assessment/Plan 1. Sepsis, as evidenced by fever and leukocytosis: Secondary to community-a cquired pneumonia -Treat with Zithromax and ceftriaxone -IV fluid -Follow-up culture results including respiratory culture if possible 2. CAD with stents: Continue antiplatelet, statin 3. History of ascending aortic aneurysm: No acute issue 4. Hypertension: BP is in acceptable range. Continue home meds 5. Diabetes: Insulin while in house 6. Ischemic cardiomyopathy (EF 40% in 2017): Continue cardiac meds Result Diagram: 09/25/18 0546 09/24/18 2218 Results 24hrs Laboratory Tests Test 09/24/18 22:18 09/24/18 22:19 09/24/18 22:28 09/24/18 23:56 White Blood Count 13.8 #H Red Blood Count 3.98 L Hemoglobin 11.9 L Hematocrit 36.0 L Mean Corpuscular 90.5 Volume Mean Corpuscular 29.9 Hemoglobin Mean Corpuscular 33.1 Hemoglobin Concent Red Cell 12.0 Distribution Width Platelet Count 262 # Mean Platelet 11.1 H Volume Immature 1.400 H Granulocytes % Neutrophils % 77.8 H Lymphocytes % 9.5 L Monocytes % 10.8 Eosinophils % 0.2 Basophils % 0.3 Nucleated Red Blood 0.0 Cells % Immature 0.200 H Granulocytes # Neutrophils # 10.7 H Lymphocytes # 1.3 Monocytes # 1.5 H Eosinophils # 0.0 Basophils # 0.0 Nucleated Red Blood 0.0 Cells # Prothrombin Time 14.1 Prothrombin Time 1.1 Ratio INR International 1.08 Normalized Ratio Activated 31.4 Partial Thromboplas t Time Sodium Level 136 Potassium Level 4.3 Chloride Level 97 Carbon Dioxide 24 Level Anion Gap 15 H Blood Urea Nitrogen 22 H Creatinine 0.95 Est Glomerular > 60 Filtrat Rate mL/min Glucose Level 216 Lactic Acid Level 1.1 1.2 Calcium Level 9.1 Total Bilirubin 0.6 Direct Bilirubin 0.00 Indirect Bilirubin 0.6 Aspartate Amino 11 L Transf (AST/SGOT) Alanine 12 L Aminotransferase (A LT/SGPT) Alkaline 76 Phosphatase Troponin I < 0.012 Total Protein 7.1 Albumin 3.8 Globulin 3.30 H Albumin/Globulin 1.15 Ratio Urine Color YELLOW Urine Clarity CLEAR Urine pH 5.0 Urine Specific 1.025 [place] Urine Ketones 1+ H Urine Nitrite NEGATIVE Urine Bilirubin NEGATIVE Urine Urobilinogen 1+ H Urine Leukocyte NEGATIVE Esterase Urine Microscopic 1 RBC Urine Microscopic 1 WBC Urine Mucus MODERATE Urine Hemoglobin NEGATIVE Urine Glucose NEGATIVE Urine Total Protein 1+ H Bedside Urine pH 5.0 (LAB) Bedside Urine 2+ H Protein (LAB) Bedside Urine Negative Glucose (UA) Bedside Urine 2+ H Ketones (LAB) Bedside Urine Blood Trace-lysed H Bedside Urine Negative Nitrite (LAB) Bedside Urine Negative Leukocyte Esterase (L Test 09/25/18 05:46 White Blood Count 12.5 H Red Blood Count 3.71 L Hemoglobin 11.1 L Hematocrit 34.0 L Mean Corpuscular 91.6 Volume Mean Corpuscular 29.9 Hemoglobin Mean Corpuscular 32.6 Hemoglobin Concent Red Cell 12.1 Distribution Width Platelet Count 225 Mean Platelet 11.2 H Volume Immature 1.400 H Granulocytes % Neutrophils % 75.0 Lymphocytes % 10.6 L Monocytes % 12.0 H Eosinophils % 0.5 Basophils % 0.5 Nucleated Red Blood 0.0 Cells % Immature 0.170 H Granulocytes # Neutrophils # 9.4 H Lymphocytes # 1.3 Monocytes # 1.5 H Eosinophils # 0.1 Basophils # 0.1 Nucleated Red Blood 0.0 Cells # HPI/ROS Admit Date/Time Admit Date/Time Sep 25, 2018 at 01:54 Hx of Present Illness This is a 67-year-old male with a history of CAD with stent, ascending aortic aneurysm, diabetes, hypertension, ischemic cardiomyopathy (EF 40% in 2017). Patient was brought to the ER for productive cough, fever and congestion. Symptoms been progressively getting worse for the past 2 days also. Cough has been productive of greenish/yellow sputum. Denied chest pain. Reported some shortness of breath. When presented to ER, he was febrile with temperature of 101.5. Labs shows a WBC of almost 14,000. Chest x-ray shows Left lower lobe confluent interstitial infiltrate. PMH/Family/Social Past Medical History Medical History: other (See HPI) Medications Current Medications Sodium Chloride 1,000 ml @ 100 mls/hr Q10H IV Last administered on 09/25/18at 02:33; Admin Dose 100 MLS/HR; Start 09/25/18 at 02:01; Stop 09/25/18 at 23:00 IV Flush (NS 3 ml) 3 ml PER PROTOCOL IV ; Start 09/25/18 at 02:30 Ondansetron HCl (Zofran Inj) 4 mg Q6H PRN IV NAUSEA/VOMITING; Start 09/25/18 at 02:30 Acetaminophen (Tylenol Tab) 650 mg Q6H PRN PO .PAIN 1-3 OR TEMP; Start 09/25/18 at 02:30 Aspirin (Aspirin) 81 mg DAILY PO ; Start 09/25/18 at 09:00 Atorvastatin Calcium (Lipitor) 40 mg HS PO ; Start 09/25/18 at 21:00 Carvedilol (Coreg) 6.25 mg BID PO ; Start 09/25/18 at 09:00 Clopidogrel Bisulfate (plaVIX) 75 mg DAILY PO ; Start 09/25/18 at 09:00 Lisinopril (Zestril) 5 mg DAILY PO ; Start 09/25/18 at 09:00 Metformin HCl (Glucophage) 500 mg WITH BREAKFAST DINNE PO ; Start 09/25/18 at 07:35 Nitroglycerin (Nitroglycerin (Sl Tab) 0.4 Mg) 1 tab Q5M PRN SL CHEST PAIN; Start 09/25/18 at 02:30 Diagnostic Test (Pha) (Accu-Chek) 1 ea 02 XX ; Start 09/26/18 at 02:00 Insulin Glargine (Lantus) 14 units DAILY@0800 SC ; Start 09/25/18 at 08:00 Insulin Aspart (Novolog Insulin Pen) NOVOLOG *MILD* ALGORITHM WITH MEALS BEDTIME SC ; Start 09/25/18 at 07:35 Azithromycin 250 ml @ 250 mls/hr DAILY IVPB ; Start 09/25/18 at 09:00 Miscellaneous Information 1 ea NOTE XX ; Start 09/25/18 at 02:30 Glucose (Glutose) 15 gm Q15M PRN PO DECREASED GLUCOSE; Start 09/25/18 at 02:30 Glucose (Glutose) 22.5 gm Q15M PRN PO DECREASED GLUCOSE; Start 09/25/18 at 02:30 Dextrose (D50w Syringe) 25 ml Q15M PRN IV DECREASED GLUCOSE; Start 09/25/18 at 02:30 Dextrose (D50w Syringe) 50 ml Q15M PRN IV DECREASED GLUCOSE; Start 09/25/18 at 02:30 Glucagon (Glucagen) 1 mg Q15M PRN IM DECREASED GLUCOSE; Start 09/25/18 at 02:30 Glucose (Glutose) 15 gm Q15M PRN BUCCAL DECREASED GLUCOSE; Start 09/25/18 at 0 2:30 Ceftriaxone Sodium 50 ml @ 100 mls/hr Q12H IVPB ; Start 09/25/18 at 10:30 Coded Allergies: No Known Allergy (Unverified , 09/24/18) Past Surgical History Past Surgical Hx: other (Cardiac stent) Family History Significant Family History: no pertinent family hx Social History Alcohol Use: none Smoking Status: Former smoker Drug Use: none Exam/Review of Systems Vital Signs Vitals Vital Signs Date Temp Pulse Resp B/P (MAP) Pulse Ox O2 O2 Flow FiO2 Time Delivery Rate 09/25/18 93 Nasal 4.0 05:15 Cannula 09/25/18 99.3 83 24 127/60 05:00 (82) Intake and Output 09/24/18 09/24/18 09/25/18 1515:00 23:00 07:00 IntakeIntake Total 240 ml BalanceBalance 240 ml Exam Constitutional: other (No acute distress) Head: normocephalic, atraumatic Eyes: EOMI, PERRL Respiratory: other (Decreased breath sounds in the left side) Cardiovascular: regular rate and rhythm, nl pulses Gastrointestinal: soft Extremities: normal pulses NIA VORA MD Sep 25, 2018 06:11
[2018-09-25] MEDS ORDERED: ALBUTEROL/IPRATROPIUM (NEB) 3 ML AMP HHN PRN (06:30)
[2018-09-25] MEDS ORDERED: GUAIFENESIN 20 MG/ML 5ML CUP PO ONE (06:30)
[2018-09-25] MEDS: metFORMIN 500 MG TAB PO SCH ×2 (07:58→17:38)
[2018-09-25] MEDS: INSULIN ASPART [NOVOLOG] 3 ML PEN SC SCH ×4 (08:00→20:24)
[2018-09-25] MEDS: AZITHROMYCIN 500MG/NS (PMX) 250 ML IVPB SCH (08:01)
[2018-09-25] MEDS: INSULIN GLARGINE [LANTus] (100 UNITS/ML) SYG SC SCH (08:01)
[2018-09-25] MEDS: CLOPIDOGREL 75 MG TAB PO SCH (08:02)
[2018-09-25] MEDS: ASPIRIN 81 MG TAB PO SCH (08:08)
[2018-09-25] MEDS: LISINOPRIL 5 MG TAB PO SCH (08:09)
[2018-09-25] MEDS: ALBUTEROL/IPRATROPIUM (NEB) 3 ML AMP HHN SCH ×4 (09:12→20:45)
[2018-09-25] MEDS: CEFTRIAXONE 1 GM/50 ML (PMX) 50 ML IVPB SCH ×2 (09:52→21:16)
--- NOTE | 2018-09-25 13:15 | PN ---
Date/Time of Note Date/Time of Note DATE: 09/25/18 TIME: 13:07 Assessment/Plan VTE Prophylaxis Risk score (from Ns)>0 risk: 2 SCD applied (from [facility] [place] Yes Pharmacological prophylaxis: heparin Lines/Catheters IV Catheter Type (from [facility]): Peripheral IV Assessment/Plan Assessment/Plan 1. Community acquired pneumonia, on rocephin and zithromax 2. Sepsis, IVF and antibiotics 3. DM, on metformin and lantus/ISS 4. CAD with stents: no chest pain, on aspirin, antiplatelet, lipitor 5. Ischemic cardiomyopathy (EF 40% in 2017), compensated, on coreg and lisinopril 6. History of ascending aortic aneurysm: No acute issue 7. Hypertension, controlled 8. DVT prophylaxis: Result Diagram: 09/25/1846 09/25/1846 Results 24hrs Laboratory Tests Test 09/24/18 22:18 09/24/18 22:19 09/24/18 22:28 09/24/18 23:56 White Blood Count 13.8 #H Red Blood Count 3.98 L Hemoglobin 11.9 L Hematocrit 36.0 L Mean Corpuscular 90.5 Volume Mean Corpuscular 29.9 Hemoglobin Mean Corpuscular 33.1 Hemoglobin Concent Red Cell 12.0 Distribution Width Platelet Count 262 # Mean Platelet 11.1 H Volume Immature 1.400 H Granulocytes % Neutrophils % 77.8 H Lymphocytes % 9.5 L Monocytes % 10.8 Eosinophils % 0.2 Basophils % 0.3 Nucleated Red Blood 0.0 Cells % Immature 0.200 H Granulocytes # Neutrophils # 10.7 H Lymphocytes # 1.3 Monocytes # 1.5 H Eosinophils # 0.0 Basophils # 0.0 Nucleated Red Blood 0.0 Cells # Prothrombin Time 14.1 Prothrombin Time 1.1 Ratio INR International 1.08 Normalized Ratio Activated 31.4 Partial Thromboplas t Time Sodium Level 136 Potassium Level 4.3 Chloride Level 97 Carbon Dioxide 24 Level Anion Gap 15 H Blood Urea Nitrogen 22 H Creatinine 0.95 Est Glomerular > 60 Filtrat Rate mL/min Glucose Level 216 Lactic Acid Level 1.1 1.2 Calcium Level 9.1 Total Bilirubin 0.6 Direct Bilirubin 0.00 Indirect Bilirubin 0.6 Aspartate Amino 11 L Transf (AST/SGOT) Alanine 12 L Aminotransferase (A LT/SGPT) Alkaline 76 Phosphatase Troponin I < 0.012 Total Protein 7.1 Albumin 3.8 Globulin 3.30 H Albumin/Globulin 1.15 Ratio Urine Color YELLOW Urine Clarity CLEAR Urine pH 5.0 Urine Specific 1.025 [place] Urine Ketones 1+ H Urine Nitrite NEGATIVE Urine Bilirubin NEGATIVE Urine Urobilinogen 1+ H Urine Leukocyte NEGATIVE Esterase Urine Microscopic 1 RBC Urine Microscopic 1 WBC Urine Mucus MODERATE Urine Hemoglobin NEGATIVE Urine Glucose NEGATIVE Urine Total Protein 1+ H Bedside Urine pH 5.0 (LAB) Bedside Urine 2+ H Protein (LAB) Bedside Urine Negative Glucose (UA) Bedside Urine 2+ H Ketones (LAB) Bedside Urine Blood Trace-lysed H Bedside Urine Negative Nitrite (LAB) Bedside Urine Negative Leukocyte Esterase (L Test 09/25/18 05:46 09/25/18 07:51 09/25/18 12:16 White Blood Count 12.5 H Red Blood Count 3.71 L Hemoglobin 11.1 L Hematocrit 34.0 L Mean Corpuscular 91.6 Volume Mean Corpuscular 29.9 Hemoglobin Mean Corpuscular 32.6 Hemoglobin Concent Red Cell 12.1 Distribution Width Platelet Count 225 Mean Platelet 11.2 H Volume Immature 1.400 H Granulocytes % Neutrophils % 75.0 Lymphocytes % 10.6 L Monocytes % 12.0 H Eosinophils % 0.5 Basophils % 0.5 Nucleated Red Blood 0.0 Cells % Immature 0.170 H Granulocytes # Neutrophils # 9.4 H Lymphocytes # 1.3 Monocytes # 1.5 H Eosinophils # 0.1 Basophils # 0.1 Nucleated Red Blood 0.0 Cells # Sodium Level 137 Potassium Level 4.2 Chloride Level 101 Carbon Dioxide 25 Level Anion Gap 11 Blood Urea Nitrogen 20 Creatinine 0.84 Est Glomerular > 60 Filtrat Rate mL/min Glucose Level 254 H Hemoglobin A1c 9.2 H Lactic Acid Level 1.2 Calcium Level 8.3 L Magnesium Level 1.5 L Total Bilirubin 0.4 Direct Bilirubin 0.00 Indirect Bilirubin 0.4 Aspartate Amino 10 L Transf (AST/SGOT) Alanine 16 Aminotransferase (A LT/SGPT) Alkaline 67 Phosphatase Total Protein 6.3 Albumin 3.3 Globulin 3.00 Albumin/Globulin 1.10 Ratio Triglycerides Level 53 Cholesterol Level 57 L LDL Cholesterol, 25 Calculated HDL Cholesterol 21 L Cholesterol/HDL 2.7 Ratio Thyroid Stimulating 2.310 Hormone (TSH) Bedside Glucose 211 246 H Subjective 24 Hr Interval Summary Free Text/Dictation feels better, sputum turns from greenish yesterday to yellowish today Exam/Review of Systems Exam Vitals Vital Signs Date Temp Pulse Resp B/P (MAP) Pulse Ox O2 O2 Flow FiO2 Time Delivery Rate 09/25/18 82 12:00 09/25/18 95 Nasal 3.0 09:12 Cannula 09/25/18 99.5 28 128/70 08:00 (89) Intake and Output 09/24/18 09/24/18 09/25/18 1414:59 22:59 06:59 IntakeIntake Total 540 ml BalanceBalance 540 ml Constitutional: alert, oriented, well developed Psych: no complaints, nl mood/affect Head: normocephalic, atraumatic Eyes: nl conjunctiva, EOMI, nl lids, PERRL ENMT: nl external ears & nose, nl lips & teeth, nl nasal mucosa & septum Neck: supple, non-tender Respiratory: congested cough, crackles/rales Cardiovascular: regular rate and rhythm, nl pulses; No bruits, No diastolic murmur, No edema, No gallop, No irregular rhythm, No jugular venous distention (JVD), No murmurs/extra sounds, No rub, No systolic murmur, No S3, No S4, No other Gastrointestinal: soft, nl liver, spleen, non-tender Musculoskeletal: nl extremities to inspection Extremities: normal pulses; No calf tenderness, No cyanosis, No clubbing, No edema, No pitting pedal edema, No palpable cord, No tenderness, No other Neurological: [employer] II-XII intact, nl mental status, nl speech, nl strength Results Results 24hrs Laboratory Tests Test 09/24/18 22:18 09/24/18 22:19 09/24/18 22:28 09/24/18 23:56 White Blood Count 13.8 #H Red Blood Count 3.98 L Hemoglobin 11.9 L Hematocrit 36.0 L Mean Corpuscular 90.5 Volume Mean Corpuscular 29.9 Hemoglobin Mean Corpuscular 33.1 Hemoglobin Concent Red Cell 12.0 Distribution Width Platelet Count 262 # Mean Platelet 11.1 H Volume Immature 1.400 H Granulocytes % Neutrophils % 77.8 H Lymphocytes % 9.5 L Monocytes % 10.8 Eosinophils % 0.2 Basophils % 0.3 Nucleated Red Blood 0.0 Cells % Immature 0.200 H Granulocytes # Neutrophils # 10.7 H Lymphocytes # 1.3 Monocytes # 1.5 H Eosinophils # 0.0 Basophils # 0.0 Nucleated Red Blood 0.0 Cells # Prothrombin Time 14.1 Prothrombin Time 1.1 Ratio INR International 1.08 Normalized Ratio Activated 31.4 Partial Thromboplas t Time Sodium Level 136 Potassium Level 4.3 Chloride Level 97 Carbon Dioxide 24 Level Anion Gap 15 H Blood Urea Nitrogen 22 H Creatinine 0.95 Est Glomerular > 60 Filtrat Rate mL/min Glucose Level 216 Lactic Acid Level 1.1 1.2 Calcium Level 9.1 Total Bilirubin 0.6 Direct Bilirubin 0.00 Indirect Bilirubin 0.6 Aspartate Amino 11 L Transf (AST/SGOT) Alanine 12 L Aminotransferase (A LT/SGPT) Alkaline 76 Phosphatase Troponin I < 0.012 Total Protein 7.1 Albumin 3.8 Globulin 3.30 H Albumin/Globulin 1.15 Ratio Urine Color YELLOW Urine Clarity CLEAR Urine pH 5.0 Urine Specific 1.025 [place] Urine Ketones 1+ H Urine Nitrite NEGATIVE Urine Bilirubin NEGATIVE Urine Urobilinogen 1+ H Urine Leukocyte NEGATIVE Esterase Urine Microscopic 1 RBC Urine Microscopic 1 WBC Urine Mucus MODERATE Urine Hemoglobin NEGATIVE Urine Glucose NEGATIVE Urine Total Protein 1+ H Bedside Urine pH 5.0 (LAB) Bedside Urine 2+ H Protein (LAB) Bedside Urine Negative Glucose (UA) Bedside Urine 2+ H Ketones (LAB) Bedside Urine Blood Trace-lysed H Bedside Urine Negative Nitrite (LAB) Bedside Urine Negative Leukocyte Esterase (L Test 09/25/18 05:46 09/25/18 07:51 09/25/18 12:16 White Blood Count 12.5 H Red Blood Count 3.71 L Hemoglobin 11.1 L Hematocrit 34.0 L Mean Corpuscular 91.6 Volume Mean Corpuscular 29.9 Hemoglobin Mean Corpuscular 32.6 Hemoglobin Concent Red Cell 12.1 Distribution Width Platelet Count 225 Mean Platelet 11.2 H Volume Immature 1.400 H Granulocytes % Neutrophils % 75.0 Lymphocytes % 10.6 L Monocytes % 12.0 H Eosinophils % 0.5 Basophils % 0.5 Nucleated Red Blood 0.0 Cells % Immature 0.170 H Granulocytes # Neutrophils # 9.4 H Lymphocytes # 1.3 Monocytes # 1.5 H Eosinophils # 0.1 Basophils # 0.1 Nucleated Red Blood 0.0 Cells # Sodium Level 137 Potassium Level 4.2 Chloride Level 101 Carbon Dioxide 25 Level Anion Gap 11 Blood Urea Nitrogen 20 Creatinine 0.84 Est Glomerular > 60 Filtrat Rate mL/min Glucose Level 254 H Hemoglobin A1c 9.2 H Lactic Acid Level 1.2 Calcium Level 8.3 L Magnesium Level 1.5 L Total Bilirubin 0.4 Direct Bilirubin 0.00 Indirect Bilirubin 0.4 Aspartate Amino 10 L Transf (AST/SGOT) Alanine 16 Aminotransferase (A LT/SGPT) Alkaline 67 Phosphatase Total Protein 6.3 Albumin 3.3 Globulin 3.00 Albumin/Globulin 1.10 Ratio Triglycerides Level 53 Cholesterol Level 57 L LDL Cholesterol, 25 Calculated HDL Cholesterol 21 L Cholesterol/HDL 2.7 Ratio Thyroid Stimulating 2.310 Hormone (TSH) Bedside Glucose 211 246 H Medications Medication Current Medications Sodium Chloride 1,000 ml @ 100 mls/hr Q10H IV Last administered on 09/25/18 12:19; Admin Dose 100 MLS/HR; Start 09/25/18 at 02:01; Stop 09/25/18 at 23:00 IV Flush (NS 3 ml) 3 ml PER PROTOCOL IV ; Start 09/25/18 at 02:30 Ondansetron HCl (Zofran Inj) 4 mg Q6H PRN IV NAUSEA/VOMITING; Start 09/25/18 at 02:30 Acetaminophen (Tylenol Tab) 650 mg Q6H PRN PO .PAIN 1-3 OR TEMP; Start 09/25/18 at 02:30 Aspirin (Aspirin) 81 mg DAILY PO Last administered on 09/25/18 08:08; Admin Dose 81 MG; Start 09/25/18 at 09:00 Atorvastatin Calcium (Lipitor) 40 mg HS PO ; Start 09/25/18 at 21:00 Carvedilol (Coreg) 6.25 mg BID PO Last administered on 09/25/18at 08:08; Admin Dose 6.25 MG; Start 09/25/18 at 09:00 Clopidogrel Bisulfate (plaVIX) 75 mg DAILY PO Last administered on 09/25/18 08:02; Admin Dose 75 MG; Start 09/25/18 at 09:00 Lisinopril (Zestril) 5 mg DAILY PO Last administered on 09/25/18 08:09; Admin Dose 5 MG; Start 09/25/18 at 09:00 Metformin HCl (Glucophage) 500 mg WITH BREAKFAST DINNE PO Last administered on 3/29/19at 07:58; Admin Dose 500 MG; Start 09/25/18 at 07:35 Nitroglycerin (Nitroglycerin (Sl Tab) 0.4 Mg) 1 tab Q5M PRN SL CHEST PAIN; Start 09/25/18 at 02:30 Diagnostic Test (Pha) (Accu-Chek) 1 ea 02 XX ; Start 09/26/18 at 02:00 Insulin Glargine (Lantus) 14 units DAILY@0800 SC Last administered on 09/25/18at 08:01; Admin Dose 14 UNITS; Start 09/25/18 at 08:00 Insulin Aspart (Novolog Insulin Pen) NOVOLOG *MILD* ALGORITHM WITH MEALS BEDTIME SC Last administered on 09/25/18at 12:22; Admin Dose 3 UNIT; Start 09/25/18 at 07:35 Azithromycin 250 ml @ 250 mls/hr DAILY IVPB Last administered on 09/25/18at 08:01; Admin Dose 250 MLS/HR; Start 09/25/18 at 09:00 Miscellaneous Information 1 ea NOTE XX ; Start 09/25/18 at 02:30 Glucose (Glutose) 15 gm Q15M PRN PO DECREASED GLUCOSE; Start 09/25/18 at 02:30 Glucose (Glutose) 22.5 gm Q15M PRN PO DECREASED GLUCOSE; Start 09/25/18 at 02:30 Dextrose (D50w Syringe) 25 ml Q15M PRN IV DECREASED GLUCOSE; Start 09/25/18 at 02:30 Dextrose (D50w Syringe) 50 ml Q15M PRN IV DECREASED GLUCOSE; Start 09/25/18 at 02:30 Glucagon (Glucagen) 1 mg Q15M PRN IM DECREASED GLUCOSE; Start 09/25/18 at 02:30 Glucose (Glutose) 15 gm Q15M PRN BUCCAL DECREASED GLUCOSE; Start 09/25/18 at 02:30 Ceftriaxone Sodium 50 ml @ 100 mls/hr Q12H IVPB Last administered on 09/25/18at 09:52; Admin Dose 100 MLS/HR; Start 09/25/18 at 10:30 Albuterol/ Ipratropium (Duoneb) 3 ml Q4H RESP THERAPY HHN Last administered on 09/25/18at 09:12; Admin Dose 3 ML; Start 09/25/18 at 09:00 Albuterol/ Ipratropium (Duoneb) 3 ml Q2H RESP THERAPY PRN HHN SHORTNESS OF BREATH; Start 09/25/18 at 06:30 SEFERINO POE MD Sep 25, 2018 13:15
[2018-09-25] MEDS: HEPARIN 5,000 UNIT/1 ML VIAL SC SCH ×2 (14:24→20:20)
[2018-09-25] MEDS: ATORVASTATIN 40 MG TAB PO SCH (20:16)
[2018-09-25] MEDS ORDERED: MAGNESIUM SULFATE 2 GM/50 ML 50 ML IVPB ONE (21:30)
[2018-09-26] VITALS (10 sets, daily range): BP systolic 114–134; BP diastolic 61–73; PULSE 65–86; RESP 18–20
[2018-09-26] MEDS: ALBUTEROL/IPRATROPIUM (NEB) 3 ML AMP HHN SCH ×6 (00:48→20:00)
[2018-09-26] MEDS: ACCU-CHEK XX SCH (01:52)
[2018-09-26] MEDS: CLOPIDOGREL 75 MG TAB PO SCH (08:02)
[2018-09-26] MEDS: metFORMIN 500 MG TAB PO SCH (08:02)
[2018-09-26] MEDS: ASPIRIN 81 MG TAB PO SCH (08:02)
[2018-09-26] MEDS: LISINOPRIL 5 MG TAB PO SCH (08:03)
[2018-09-26] MEDS: HEPARIN 5,000 UNIT/1 ML VIAL SC SCH ×2 (08:14→20:44)
[2018-09-26] MEDS: INSULIN ASPART [NOVOLOG] 3 ML PEN SC SCH ×4 (08:14→20:45)
[2018-09-26] MEDS: CEFTRIAXONE 1 GM/50 ML (PMX) 50 ML IVPB SCH ×2 (10:02→22:50)
[2018-09-26] MEDS: AZITHROMYCIN 500MG/NS (PMX) 250 ML IVPB SCH (10:35)
--- NOTE | 2018-09-26 11:06 | PN ---
Date/Time of Note Date/Time of Note DATE: 09/26/18 TIME: 11:00 Assessment/Plan VTE Prophylaxis Risk score (from Ns)>0 risk: 4 SCD applied (from [facility] [place] Yes SCD contraindicated: low risk/ambulating Pharmacological prophylaxis: heparin Lines/Catheters IV C[facility]ter Type ([facility] Peripheral IV Assessment/Plan Problems: (1) Left lower lobe pneumonia Status: Acute Comment: Proving with antibiotic therapy. Continue treatment. No further i ndication for telemetry Qualifiers: Pneumonia type: due to unspecified organism Qualified Codes: J18.1 - Lobar pneumonia, unspecified organism (2) Coronary artery disease Status: Chronic Comment: Stable and quiescent at this time Qualifiers: Coronary Disease-Associated Artery/Lesion type: [place] artery [place] vs. transplanted heart: [place] heart Associated angina: without angina Qualified Codes: I25.10 - Atherosclerotic heart disease of [place] coronary artery without angina pectoris (3) H/O heart artery stent Status: Chronic Comment: Stable and operational (4) Systolic CHF with reduced left ventricular function, NYHA class 2 Status: Chronic Comment: Compensated with medical management (5) Grade I diastolic dysfunction Status: Chronic Comment: Trolled and compensated with medical management and blood pressure control (6) Diabetes mellitus type 2 in obese Status: Chronic Comment: Adequate glycemic control in the hospital however his outpatient control was poor (7) Hyperlipidemia Status: Chronic Comment: Continue with aggressive risk factor modification Qualifiers: Hyperlipidemia type: pure hypercholesterolemia Qualified Codes: E78.00 - Pure hypercholesterolemia, unspecified (8) Essential hypertension Status: Chronic Comment: Adequate control using beta-harrison and MERY inhibitor (9) Obesity (BMI 30.0-34.9) Status: Chronic Comment: Calorie restriction diet (10) Anemia Status: Acute Comment: Basic workup Qualifiers: Anemia type: unspecified type Qualified Codes: D64.9 - Anemia, unspecified Result Diagram: 09/26/18 0546 09/26/18 0546 Results 24hrs Laboratory Tests Test 09/25/18 12:16 09/25/18 17:25 09/25/18 19:59 09/26/18 01:40 Bedside Glucose 246 H 191 267 H 150 Test 09/26/18 05:46 09/26/18 07:58 White Blood Count 12.1 H Red Blood Count 3.70 L Hemoglobin 11.0 L Hematocrit 34.5 L Mean Corpuscular 93.2 Volume Mean Corpuscular 29.7 Hemoglobin Mean Corpuscular 31.9 L Hemoglobin Concent Red Cell 12.2 Distribution Width Platelet Count 254 Mean Platelet Volume 11.1 H Immature 1.600 H Granulocytes % Neutrophils % 74.6 Lymphocytes % 13.1 L Monocytes % 9.8 Eosinophils % 0.5 Basophils % 0.4 Nucleated Red Blood 0.0 Cells % Immature 0.190 H Granulocytes # Neutrophils # 9.0 H Lymphocytes # 1.6 Monocytes # 1.2 H Eosinophils # 0.1 Basophils # 0.1 Nucleated Red Blood 0.0 Cells # Sodium Level 137 Potassium Level 4.3 Chloride Level 104 Carbon Dioxide Level 27 Anion Gap 6 Blood Urea Nitrogen 15 Creatinine 0.82 Est Glomerular > 60 Filtrat Rate mL/min Glucose Level 164 Calcium Level 8.4 Phosphorus Level 3.7 Magnesium Level 2.2 Bedside Glucose 161 Subjective 24 Hr Interval Summary Free Text/Dictation Patient reports he is feeling a little bit better. There is less cough and less shortness of breath. Constitutional: no complaints (Denies any fevers chills or sweats) ENT: no complaints Respiratory: no complaints (As above cough is diminished no sputum production less shortness of breath) Cardiovascular: no complaints (Chest pain no palpitations no PND no orthopnea) Gastrointestinal: no complaints (No nausea or vomiting) Genitourinary: no complaints Neurologic: no complaints Exam/Review of Systems Exam Vitals Vital Signs Date Temp Pulse Resp B/P (MAP) Pulse Ox O2 O2 Flow FiO2 Time Delivery Rate 09/26/18 71 09:11 09/26/18 97.7 19 114/62 93 Room Air 2.0 07:55 (79) Constitutional: alert, oriented Neck: supple, non-tender Respiratory: normal air movement, crackles/rales (Left basilar crackles and egophony) Cardiovascular: regular rate and rhythm, nl pulses Gastrointestinal: soft, nl liver, spleen, non-tender Results Results 24hrs Laboratory Tests Test 09/25/18 12:16 09/25/18 17:25 09/25/18 19:59 09/26/18 01:40 Bedside Glucose 246 H 191 267 H 150 Test 09/26/18 05:46 09/26/18 07:58 White Blood Count 12.1 H Red Blood Count 3.70 L Hemoglobin 11.0 L Hematocrit 34.5 L Mean Corpuscular 93.2 Volume Mean Corpuscular 29.7 Hemoglobin Mean Corpuscular 31.9 L Hemoglobin Concent Red Cell 12.2 Distribution Width Platelet Count 254 Mean Platelet Volume 11.1 H Immature 1.600 H Granulocytes % Neutrophils % 74.6 Lymphocytes % 13.1 L Monocytes % 9.8 Eosinophils % 0.5 Basophils % 0.4 Nucleated Red Blood 0.0 Cells % Immature 0.190 H Granulocytes # Neutrophils # 9.0 H Lymphocytes # 1.6 Monocytes # 1.2 H Eosinophils # 0.1 Basophils # 0.1 Nucleated Red Blood 0.0 Cells # Sodium Level 137 Potassium Level 4.3 Chloride Level 104 Carbon Dioxide Level 27 Anion Gap 6 Blood Urea Nitrogen 15 Creatinine 0.82 Est Glomerular > 60 Filtrat Rate mL/min Glucose Level 164 Calcium Level 8.4 Phosphorus Level 3.7 Magnesium Level 2.2 Bedside Glucose 161 Medications Medication Current Medications IV Flush (NS 3 ml) 3 ml PER PROTOCOL IV ; Start 09/25/18 at 02:30 Ondansetron HCl (Zofran Inj) 4 mg Q6H PRN IV NAUSEA/VOMITING; Start 09/25/18 at 02:30 Acetaminophen (Tylenol Tab) 650 mg Q6H PRN PO .PAIN 1-3 OR TEMP Last administered on 09/26/18 00:19; Admin Dose 650 MG; Start 09/25/18 at 02:30 Aspirin (Aspirin) 81 mg DAILY PO Last administered on 09/26/18 08:02; Admin Dose 81 MG; Start 09/25/18 at 09:00 Atorvastatin Calcium (Lipitor) 40 mg HS PO Last administered on 09/25/18at 20:16; Admin Dose 40 MG; Start 09/25/18 at 21:00 Carvedilol (Coreg) 6.25 mg BID PO Last administered on 09/26/18 08:03; Admin Dose 6.25 MG; Start 09/25/18 at 09:00 Clopidogrel Bisulfate (plaVIX) 75 mg DAILY PO Last administered on 09/26/18 08:02; Admin Dose 75 MG; Start 09/25/18 at 09:00 Lisinopril (Zestril) 5 mg DAILY PO Last administered on 09/26/18 08:03; Admin Dose 5 MG; Start 09/25/18 at 09:00 Metformin HCl (Glucophage) 500 mg WITH BREAKFAST DINNE PO Last administered on 09/26/18at 08:02; Admin Dose 500 MG; Start 09/25/18 at 07:35 Nitroglycerin (Nitroglycerin (Sl Tab) 0.4 Mg) 1 tab Q5M PRN SL CHEST PAIN; Start 09/25/18 at 02:30 Diagnostic Test (Pha) (Accu-Chek) 1 ea 02 XX Last administered on 09/26/18at 01:52; Admin Dose 1 EA; Start 09/26/18 at 02:00 Insulin Glargine (Lantus) 14 units DAILY@0800 SC Last administered on 09/25/18at 08:01; Admin Dose 14 UNITS; Start 09/25/18 at 08:00 Insulin Aspart (Novolog Insulin Pen) NOVOLOG *MILD* ALGORITHM WITH MEALS BEDTIME SC Last administered on 09/26/18at 08:14; Admin Dose 1 UNIT; Start 09/25/18 at 07:35 Azithromycin 250 ml @ 250 mls/hr DAILY IVPB Last administered on 09/26/18at 10:35; Admin Dose 250 MLS/HR; Start 09/25/18 at 09:00 Miscellaneous Information 1 ea NOTE XX ; Start 09/25/18 at 02:30 Glucose (Glutose) 15 gm Q15M PRN PO DECREASED GLUCOSE; Start 09/25/18 at 02:30 Glucose (Glutose) 22.5 gm Q15M PRN PO DECREASED GLUCOSE; Start 09/25/18 at 02:30 Dextrose (D50w Syringe) 25 ml Q15M PRN IV DECREASED GLUCOSE; Start 09/25/18 at 02:30 Dextrose (D50w Syringe) 50 ml Q15M PRN IV DECREASED GLUCOSE; Start 09/25/18 at 02:30 Glucagon (Glucagen) 1 mg Q15M PRN IM DECREASED GLUCOSE; Start 09/25/18 at 02:30 Glucose (Glutose) 15 gm Q15M PRN BUCCAL DECREASED GLUCOSE; Start 09/25/18 at 02:30 Ceftriaxone Sodium 50 ml @ 100 mls/hr Q12H IVPB Last administered on 09/26/18at 10:02; Admin Dose 100 MLS/HR; Start 09/25/18 at 10:30 Albuterol/ Ipratropium (Duoneb) 3 ml Q4H RESP THERAPY HHN Last administered on 09/26/18at 05:14; Admin Dose 3 ML; Start 09/25/18 at 09:00 Albuterol/ Ipratropium (Duoneb) 3 ml Q2H RESP THERAPY PRN HHN SHORTNESS OF KARAN ATH; Start 09/25/18 at 06:30 Heparin Sodium (Porcine) (Heparin (5000 Units/1ml)) 5,000 unit BID SC Last administered on 09/26/18at 08:14; Admin Dose 5,000 UNIT; Start 09/25/18 at 13:30 SHAKEEL BECK MD Sep 26, 2018 11:06
[2018-09-26] MEDS: INSULIN GLARGINE [LANTus] (100 UNITS/ML) SYG SC SCH (12:14)
[2018-09-26] MEDS: metFORMIN 850 MG TAB PO SCH (17:43)
[2018-09-26] MEDS: ATORVASTATIN 40 MG TAB PO SCH (20:41)
[2018-09-27] MEDS: ALBUTEROL/IPRATROPIUM (NEB) 3 ML AMP HHN SCH ×6 (01:14→21:27)
[2018-09-27 01:53] VITALS: BP 138/70; PULSE 81; RESP 18
[2018-09-27] MEDS: GUAIFENESIN/DM 5ML CUP PO PRN ×2 (01:56→14:41)
[2018-09-27] MEDS: CEPASTAT LOZENGE MT PRN ×3 (01:56→21:02)
[2018-09-27] MEDS: ACCU-CHEK XX SCH (02:00)
[2018-09-27 07:21] VITALS: BP 133/69; PULSE 78; RESP 20
[2018-09-27] MEDS: INSULIN ASPART [NOVOLOG] 3 ML PEN SC SCH ×4 (08:00→21:00)
[2018-09-27] MEDS: metFORMIN 850 MG TAB PO SCH ×2 (08:50→18:16)
[2018-09-27] MEDS: CLOPIDOGREL 75 MG TAB PO SCH (08:51)
[2018-09-27] MEDS: ASPIRIN 81 MG TAB PO SCH (08:51)
[2018-09-27] MEDS: HEPARIN 5,000 UNIT/1 ML VIAL SC SCH ×2 (08:53→21:02)
[2018-09-27] MEDS: LISINOPRIL 5 MG TAB PO SCH ×2 (08:57→20:58)
[2018-09-27] MEDS: AZITHROMYCIN 500MG/NS (PMX) 250 ML IVPB SCH (08:57)
[2018-09-27] MEDS: INSULIN GLARGINE [LANTus] (100 UNITS/ML) SYG SC SCH (09:06)
--- NOTE | 2018-09-27 09:39 | PN ---
Date/Time of Note Date/Time of Note DATE: 09/27/18 TIME: 09:34 Assessment/Plan VTE Prophylaxis Risk score (from [facility] [place])>0 risk: 4 SCD applied (from [facility] [place]): Yes SCD contraindicated: low risk/ambulating Pharmacological prophylaxis: heparin Lines/Catheters IV C[facility]ter Type (from [facility]): Saline Lock Assessment/Plan Problems: (1) Left lower lobe pneumonia Status: Acute Comment: Improving nicely. Probable discharge in more Qualifiers: Pneumonia type: due to unspecified organism Qualified Codes: J18.1 - Lobar pneumonia, unspecified organism (2) Diabetes mellitus type 2 in obese Status: Chronic Comment: Improving control with adjustments in medication. (3) Coronary artery disease Status: Chronic Comment: Fortunately quiescent Qualifiers: Coronary Disease-Associated Artery/Lesion type: solomon artery [place] vs. transplanted heart: solomon heart Associated angina: without angina Qualified Codes: I25.10 - Atherosclerotic heart disease of solomon coronary artery without angina pectoris (4) Systolic CHF with reduced left ventricular function, NYHA class 2 Status: Chronic Comment: Stable and well compensated. Please note we have room to address the MERY inhibitor and he is already on carvedilol. We will increase the MERY in hibitor to 10 mg of lisinopril a day. Please note discharge try and simplify the regimen to as many once a day medications as possible (5) Grade I diastolic dysfunction Status: Chronic Comment: Control blood pressure (6) Essential hypertension Status: Chronic Comment: Improving nicely (7) Hyperlipidemia Status: Chronic Comment: On treatment. Qualifiers: Hyperlipidemia type: pure hypercholesterolemia Qualified Codes: E78.00 - Pure hypercholesterolemia, unspecified (8) Anemia Status: Acute Comment: We will give iron to help replace this but this needs an outpatient workup. Qualifiers: Anemia type: iron deficiency Iron deficiency anemia type: unspecified iron deficiency Qualified Codes: D50.9 - Iron deficiency anemia, unspecified Result Diagram: 09/26/18 0546 09/26/18 0546 Results 24hrs Laboratory Tests Test 09/26/18 12:09 09/26/18 17:37 09/26/18 20:39 09/27/18 02:15 Bedside Glucose 244 H 149 186 154 Test 09/27/18 08:01 Bedside Glucose 113 Subjective 24 Hr Interval Summary Free Text/Dictation Patient reports he is feeling better. Constitutional: no complaints (Eyes fevers chills or sweats) Respiratory: no complaints (Shortness of breath is improved and cough is reduced) Cardiovascular: no complaints Gastrointestinal: no complaints Genitourinary: no complaints Exam/Review of Systems Exam Vitals Vital Signs Date Temp Pulse Resp B/P (MAP) Pulse Ox O2 O2 Flow FiO2 Time Delivery Rate 09/27/18 72 17 93 Nasal 2.0 09:14 Cannula 09/27/18 98.0 133/69 07:21 (90) Intake and Output 09/26/18 09/26/18 09/27/18 1515:00 23:00 07:00 IntakeIntake Total 1180 ml 480 ml 50 ml BalanceBalance 1180 ml 480 ml 50 ml Constitutional: alert, oriented Neck: supple, non-tender Respiratory: normal air movement, crackles/rales (Basilar crackles) Cardiovascular: regular rate and rhythm, nl pulses Gastrointestinal: soft, nl liver, spleen, non-tender Results Results 24hrs Laboratory Tests Test 09/26/18 12:09 09/26/18 17:37 09/26/18 20:39 09/27/18 02:15 Bedside Glucose 244 H 149 186 154 Test 09/27/18 08:01 Bedside Glucose 113 Medications Medication Current Medications IV Flush (NS 3 ml) 3 ml PER PROTOCOL IV ; Start 09/25/18 at 02:30 Ondansetron HCl (Zofran Inj) 4 mg Q6H PRN IV NAUSEA/VOMITING; Start 09/25/18 at 02:30 Acetaminophen (Tylenol Tab) 650 mg Q6H PRN PO .PAIN 1-3 OR TEMP Last administered on 09/26/18at 00:19; Admin Dose 650 MG; Start 09/25/18 at 02:30 Aspirin (Aspirin) 81 mg DAILY PO Last administered on 09/27/18 08:51; Admin Dose 81 MG; Start 09/25/18 at 09:00 Atorvastatin Calcium (Lipitor) 40 mg HS PO Last administered on 09/26/18at 20:41; Admin Dose 40 MG; Start 09/25/18 at 21:00 Carvedilol (Coreg) 6.25 mg BID PO Last administered on 09/27/18 08:52; Admin Dose 6.25 MG; Start 09/25/18 at 09:00 Clopidogrel Bisulfate (plaVIX) 75 mg DAILY PO Last administered on 09/27/18 08:51; Admin Dose 75 MG; Start 09/25/18 at 09:00 Lisinopril (Zestril) 5 mg DAILY PO Last administered on 09/27/18 08:57; Admin Dose 5 MG; Start 09/25/18 at 09:00 Nitroglycerin (Nitroglycerin (Sl Tab) 0.4 Mg) 1 tab Q5M PRN SL CHEST PAIN; Start 09/25/18 at 02:30 Diagnostic Test (Pha) (Accu-Chek) 1 ea 02 XX Last administered on 09/26/18 01:52; Admin Dose 1 EA; Start 09/26/18 at 02:00 Insulin Glargine (Lantus) 14 units DAILY@0800 SC Last administered on 09/27/18 09:06; Admin Dose 14 UNITS; Start 09/25/18 at 08:00 Insulin Aspart (Novolog Insulin Pen) NOVOLOG *MILD* ALGORITHM WITH MEALS BEDTIME SC Last administered on 09/26/18 20:45; Admin Dose 1 UNIT; Start 09/25/18 at 07:35 Azithromycin 250 ml @ 250 mls/hr DAILY IVPB Last administered on 09/27/18 08:57; Admin Dose 250 MLS/HR; Start 09/25/18 at 09:00; Stop 09/28/18 at 08:59 Miscellaneous Information 1 ea NOTE XX ; Start 09/25/18 at 02:30 Glucose (Glutose) 15 gm Q15M PRN PO DECREASED GLUCOSE; Start 09/25/18 at 02:30 Glucose (Glutose) 22.5 gm Q15M PRN PO DECREASED GLUCOSE; Start 09/25/18 at 02:30 Dextrose (D50w Syringe) 25 ml Q15M PRN IV DECREASED GLUCOSE; Start 09/25/18 at 02:30 Dextrose (D50w Syringe) 50 ml Q15M PRN IV DECREASED GLUCOSE; Start 09/25/18 at 02:30 Glucagon (Glucagen) 1 mg Q15M PRN IM DECREASED GLUCOSE; Start 09/25/18 at 02:30 Glucose (Glutose) 15 gm Q15M PRN BUCCAL DECREASED GLUCOSE; Start 09/25/18 at 02:30 Ceftriaxone Sodium 50 ml @ 100 mls/hr Q12H IVPB Last administered on 09/26/18at 22:50; Admin Dose 100 MLS/HR; Start 09/25/18 at 10:30; Stop 10/02/18 at 10:29 Albuterol/ Ipratropium (Duoneb) 3 ml Q4H RESP THERAPY HHN Last administered on 09/27/18at 09:12; Admin Dose 3 ML; Start 09/25/18 at 09:00 Albuterol/ Ipratropium (Duoneb) 3 ml Q2H RESP THERAPY PRN HHN SHORTNESS OF BREATH; Start 09/25/18 at 06:30 Heparin Sodium (Porcine) (Heparin (5000 Units/1ml)) 5,000 unit BID SC Last administered on 09/27/18 08:53; Admin Dose 5,000 UNIT; Start 09/25/18 at 13:30 Metformin HCl (Glucophage) 850 mg WITH BREAKFAST DINNE PO Last administered on 09/27/18at 08:50; Admin Dose 850 MG; Start 09/26/18 at 17:55 Guaifenesin/ Dextromethorphan (Robitussin Dm Liquid Cup) 5 ml Q4H PRN PO for coughing Last administered on 09/27/18at 01:56; Admin Dose 5 ML; Start 09/27/18 at 02:00 Phenol (Cepastat Lozenge) 1 lozenge Q1H PRN MT for sore throat Last administered on 09/27/18at 03:57; Admin Dose 1 LOZENGE; Start 09/27/18 at 02:00 SHAKEEL BECK MD Sep 27, 2018 09:39
[2018-09-27] MEDS ORDERED: SOD FERRIC GLUC COMPLX 125 MG in SOD CHLORIDE 0.9% 100 ML IVPB ONE (10:00)
[2018-09-27] MEDS: CEFTRIAXONE 1 GM/50 ML (PMX) 50 ML IVPB SCH ×2 (10:23→22:14)
[2018-09-27] MEDS: FERROUS FUMARATE (SR) TAB PO SCH (12:08)
[2018-09-27] MEDS: SOD FERRIC GLUC COMPLX 125 MG in SOD CHLORIDE 0.9% 100 ML IVPB SCH (12:09)
[2018-09-27 14:17] VITALS: BP 117/60; PULSE 71; RESP 20
[2018-09-27 19:49] VITALS: BP 149/79; PULSE 74; RESP 18
[2018-09-27] MEDS: ATORVASTATIN 40 MG TAB PO SCH (20:58)
[2018-09-28] MEDS: ALBUTEROL/IPRATROPIUM (NEB) 3 ML AMP HHN SCH ×4 (00:41→13:00)
[2018-09-28 01:28] VITALS: BP 137/74; PULSE 70; RESP 18
[2018-09-28] MEDS: ACCU-CHEK XX SCH (02:00)
[2018-09-28] MEDS: CEPASTAT LOZENGE MT PRN (03:28)
[2018-09-28 07:29] VITALS: BP 135/80; PULSE 71; RESP 18
[2018-09-28] MEDS: INSULIN ASPART [NOVOLOG] 3 ML PEN SC SCH ×2 (08:00→12:00)
[2018-09-28] MEDS: metFORMIN 850 MG TAB PO SCH (08:39)
[2018-09-28] MEDS: ASPIRIN 81 MG TAB PO SCH (08:39)
[2018-09-28] MEDS: CLOPIDOGREL 75 MG TAB PO SCH (08:39)
[2018-09-28] MEDS: FERROUS FUMARATE (SR) TAB PO SCH (08:39)
[2018-09-28] MEDS: LISINOPRIL 5 MG TAB PO SCH (08:40)
[2018-09-28] MEDS: INSULIN GLARGINE [LANTus] (100 UNITS/ML) SYG SC SCH (08:41)
[2018-09-28] MEDS: HEPARIN 5,000 UNIT/1 ML VIAL SC SCH (08:42)
[2018-09-28] MEDS: CEFTRIAXONE 1 GM/50 ML (PMX) 50 ML IVPB SCH (10:06)
[2018-09-28] MEDS ORDERED: LEVO500T10 PO (11:34)
--- NOTE | 2018-09-28 11:40 | DS ---
Date/Time of Note Date/Time of Note DATE: 09/28/18 TIME: 11:38 Discharge Summary Admission/Discharge Info Admit Date/Time Sep 25, 2018 at 01:54 Discharge Date/Time Discharge Diagnosis 1. Community acquired pneumonia, improving, on antibiotics 2. Sepsis, resolved 3. DM, stable 4. CAD with stents: no chest pain, on aspirin, antiplatelet, lipitor 5. Ischemic cardiomyopathy (EF 40% in 2017), compensated, on coreg and lisinopril 6. History of ascending aortic aneurysm: No acute issue 7. Hypertension, controlled Patient Condition: Stable Hospital Course This is a 67-year-old male with a history of CAD with stent, ascending aortic aneurysm, diabetes, hypertension, ischemic cardiomyopathy (EF 40% in 2017). Patient was brought to the ER for productive cough, fever and congestion. Symptoms been progressively getting worse for the past 2 days also. Cough has been productive of greenish/yellow sputum. Denied chest pain. Reported some shortness of breath. When presented to ER, he was febrile with temperature of 101.5. Labs shows a WBC of almost 14,000. Chest x-ray shows Left lower lobe confluent interstitial infiltrate. Patient is treatyed with rocephin and zithromax for pneumonia, symptoms improved. I will discharge him with levaquin for 7 more days. Home Meds Active Scripts Levofloxacin* (Levofloxacin*) 500 Mg Tablet, 500 MG PO DAILY for 7 Days, TAB Prov:SEFERINO POE MD 09/28/18 Glipizide* (Glipizide*) 5 Mg Tablet, 5 MG PO AC BREAKFAST, #60 TAB Prov:RIP RODRIGUEZ 01/14/17 Metformin Hcl* (Metformin Hcl*) 500 Mg Tablet, 500 MG PO WITH BREAKFAST DINNE, #60 TAB 1 Refill Prov:RIP RODRIGUEZ 01/14/17 Nitroglycerin* (Nitroglycerin* SL) 0.4 Mg Tab.subl, 0.4 MG SL Q5MIN PRN for CHEST PAIN, #90 BOTTLE Prov:RIP RODRIUGEZ 01/14/17 Aspirin (Aspirin) 81 Mg Chew, 81 MG PO DAILY, #90 TAB Prov:RIP RODRIGUEZ 01/14/17 Lisinopril* (Lisinopril*) 5 Mg Tablet, 5 MG PO DAILY, #60 TAB Prov:RIP RODRIGUEZ 01/14/17 Carvedilol* (Carvedilol*) 6.25 Mg Tablet, 6.25 MG PO BID, #60 TAB 1 Refill Prov:MARION RODRIGUEZMark 01/14/17 Atorvastatin* (Atorvastatin*) 40 Mg Tablet, 40 MG PO HS, #60 TAB Prov:JENNIFERRIP VAZQUEZ 01/14/17 Clopidogrel Bisulfate (Clopidogrel) 75 Mg Tablet, 75 MG PO DAILY, #90 TAB Prov:JENNIFERRIP 01/14/17 Primary Care Provider [facility] Pending Labs Laboratory Tests Test 09/27/18 12:55 09/27/18 17:34 09/27/18 20:56 09/28/18 08:32 Bedside 156 110 106 92 Glucose mg/dL (70-220) mg/dL (70-220) mg/dL (70-220) mg/dL (70-220) SEFERINO POE MD Sep 28, 2018 11:40
[2018-09-28] MEDS: SOD FERRIC GLUC COMPLX 125 MG in SOD CHLORIDE 0.9% 100 ML IVPB SCH (12:15)
== END 2018-09-28 14:20 | disposition home or self-care (01) | DRG 871 ==
LOC: E/R 20:55 → MS3 09-25 01:54 → TEL 09-25 16:32 → 2NE 09-26 13:00
PROVIDERS: ADMIT Internal Medicine; ATTEND Internal Medicine
DX: A41.9 Sepsis, unspecified organism (principal); J18.9 Pneumonia, unspecified organism; I50.20 Unspecified systolic (congestive) heart failure; I11.0 Hypertensive heart disease with heart failure; Z95.5 Presence of coronary angioplasty implant and graft; I25.5 Ischemic cardiomyopathy; E11.9 Type 2 diabetes mellitus without complications; I71.4 Abdominal aortic aneurysm, without rupture; E86.0 Dehydration
CPT/HCPCS: 36415; 71045; 80048; 80053; 80061; 81001; 81003; 82962; 83036; 83540; 83605; 83735; 84100; 84443; 84484; 85025; 85610; 85730; 86803; 87070; 87086; 87400; 93005; 94640; 94664; 96374; 96375; J0456; J0696; J1644; J1815; J2916; J3475; J7030